=== PATIENT | male | born 1935 | race Caucasian/White ===

== ENCOUNTER 2016-08-22 16:08 | Inpatient (IN) | payer MEDICARE, BC ==
--- NOTE | 2016-08-22 16:56 | ER Document Report ---
ED Medical Screen (RME) - General Chief Complaint: Weakness Stated Complaint: WEAKNESS Notes: The patient is an 81-year-old male, past medical history CAD s/p CABG, hypertension, prostate cancer with indwelling lynch, presents with 2 days of generalized weakness and fatigue. According to his [id number], the patient is looking paler. He takes iron pills, so his stool is always dark, but no bright red blood per rectum. His Lynch was changed 2 weeks ago and he was placed on Bactrim for 10 days for a UTI. Patient denies any complaints at this time, other than a sore tongue. Denies chest pain, shortness of breath, nausea, vomiting, fevers, flank pain, headache, numbness, tingling or blurry vision. I have greeted and performed a rapid initial assessment of this patient. A comprehensive ED assessment and evaluation of the patient, analysis of test results and completion of the medical decision making process will be conducted by additional ED providers. TRAVEL OUTSIDE OF THE [place] IN LAST 30 DAYS: No - Related Data Allergies/Adverse Reactions: No Known Allergies Allergy (Verified 08/22/16 16:34) Past Medical History - Social History Chew tobacco use (# tins/day): No Frequency of alcohol use: None Drug Abuse: None - Past Medical History Cardiac Medical History: Reports: Hx Congestive Heart Failure, Hx Coronary Artery Disease, Hx Hypercholesterolemia, Hx Hypertension Denies: Hx Heart Attack, Hx Heart Murmur Pulmonary Medical History: Reports: Hx Pneumonia Denies: Hx Asthma, Hx Tuberculosis Neurological Medical History: Reports: Hx Cerebrovascular Accident - 2000. Denies: Hx Seizures Renal/ Medical History: Reports: Hx Benign Prostatic Hyperplasia. Denies: Hx Peritoneal Dialysis Malignancy Medical History: Reports Hx Prostate Cancer GI Medical History: Reports: Hx Gastroesophageal Reflux Disease. Denies: Hx Hepatitis, Hx Hiatal Hernia Musculoskeltal Medical History: Reports Hx Arthritis Infectious Medical History: Denies: Hx Hepatitis Past Surgical History: Reports: Hx Appendectomy, Hx Coronary Artery Bypass Graft , Hx Open Heart Surgery - 1999. Denies: Hx Pacemaker - Immunizations Immunizations up to date: Yes Hx Diphtheria, Pertussis, Tetanus Vaccination: Yes Physical Exam - Vital signs Vitals: Temp Pulse Resp BP Pulse Ox 97.5 F 63 20 106/50 L 95 08/22/16 16:11 08/22/16 16:11 08/22/16 16:11 08/22/16 16:11 08/22/16 16:11 Course - Vital Signs Vital signs: Temp Pulse Resp BP Pulse Ox 97.5 F 63 20 106/50 L 95 08/22/16 16:11 08/22/16 16:11 08/22/16 16:11 08/22/16 16:11 08/22/16 16:11
[2016-08-22 18:59] LABS: ALANINE AMINOTRANSFERASE 36 U/L (21-72); ALBUMIN 3.3 g/dL (3.5-5.0); ALKALINE PHOSPHATASE 76 U/L (38-126); ANION GAP 11 (5-19); ASPARTATE AMINO TRANSFERASE 31 U/L (17-59); BILIRUBIN,DIRECT 0.4 mg/dL (0.0-0.4); BILIRUBIN,TOTAL 0.5 mg/dL (0.2-1.3); BLOOD UREA NITROGEN 88 mg/dL (7-20); CALCIUM 9.1 mg/dL (8.4-10.2); CARBON DIOXIDE 20 mmol/L (22-30); CHLORIDE 105 mmol/L (98-107); CREATINE KINASE 87 U/L (55-170); CREATININE RESULT 4.04 mg/dL (0.52-1.25); GLUCOSE 110 mg/dL (75-110); POTASSIUM 5.9 mmol/L (3.6-5.0); SODIUM 136.4 mmol/L (137-145)
[2016-08-22 19:04] LABS: HGB HCT DIFFERENCE -0.3; MEAN CORPUSCULAR HEMOGLOBIN 28.2 pg (27.0-33.4); MEAN CORPUSCULAR HGB CONC 32.6 g/dL (32.0-36.0); MEAN CORPUSCULAR VOLUME 87 fl (80-97); RED BLOOD COUNT 2.08 10^6/uL (4.35-5.55); RED CELL DISTRIBUTION WIDTH 15.1 % (11.5-14.0); WHITE BLOOD COUNT 22.9 10^3/uL (4.0-10.5)
[2016-08-22 19:15] LABS: HEMOGLOBIN 5.9 g/dL (13.5-17.0); TROPONIN I < 0.012 ng/mL
[2016-08-22 19:24] LABS: BASOPHILS % (MANUAL) 0 % (0-2); EOSINOPHILS % (MANUAL) 0 % (0-6); LYMPHOCYTES % (MANUAL) 8 % (13-45); TOTAL CELLS COUNTED 100
[2016-08-22 19:25] LABS: ANISOCYTOSIS SLIGHT; POLYCHROMASIA SLIGHT; TOXIC GRANULATION 1+
[2016-08-22 19:26] LABS: HYPOCHROMASIA SLIGHT; PLATELET CLUMPS PRESENT
[2016-08-22] MEDS ORDERED: NORMAL SALINE 500 ML IV ONE (19:28)
[2016-08-22 19:44] LABS: PROTHROMBIN TIME 13.7 SEC (11.4-15.4)
[2016-08-22 19:45] LABS: PARTIAL THROMBOPLASTIN TIME 29.6 SEC (23.5-35.8)
--- NOTE | 2016-08-22 19:50 | EKG REPORT ---
SEVERITY:- ABNORMAL ECG - SINUS RHYTHM IVCD. FIRST DEG AVB NONSPECIFIC ST-T CHANGES- LATERAL LEADS : Confirmed by: Todd Cuevas MD 22-Aug-2016 19:49:37
[2016-08-22] MEDS ORDERED: CEFEPIME 1 GM/D5W RTU 50 ML IV ONE (20:02)
[2016-08-22 20:04] LABS: APPEARANCE,URINE CLOUDY; BILIRUBIN,URINE NEGATIVE (NEGATIVE); GLUCOSE, URINE NEGATIVE (NEGATIVE); KETONES,URINE NEGATIVE (NEGATIVE); LEUKOCYTE ESTERASE,URINE LARGE (NEGATIVE); NITRITE,URINE POSITIVE (NEGATIVE); PROTEIN,URINE 100 mg/dL (NEGATIVE); URINE SPECIFIC GRAVITY 1.011; UROBILINOGEN,URINE NEGATIVE mg/dL (<2.0)
[2016-08-22] MEDS ORDERED: FUROSEMIDE INJ/PF 40 MG/4 ML SDV IV PRN (20:41)
[2016-08-22] MEDS ORDERED: NORMAL SALINE 250 ML IV PRN ×2 (20:41)
[2016-08-22] MEDS ORDERED: ONDANSETRON HCL INJ/PF 4 MG/2 ML SDV IV PRN (21:52)
[2016-08-22] MEDS ORDERED: MAGNESIUM HYDROXIDE SUSP 30 ML UDCUP PO PRN (21:52)
[2016-08-22] MEDS ORDERED: ACETAMINOPHEN 325 MG TABLET PO PRN (21:52)
[2016-08-22] MEDS ORDERED: MAG HYDROX/AL HYDROX/SIMETH SUSP 30 ML UDCUP PO PRN (21:52)
--- NOTE | 2016-08-22 22:33 | ER Document Report ---
ED General - General Chief Complaint: Weakness Stated Complaint: WEAKNESS TRAVEL OUTSIDE OF THE [place] IN LAST 30 DAYS: No - HPI Patient complains to provider of: generalized weakness Notes: Patient coming in for generalized weakness. Patient has a history of prostate cancer no current radiation and chemotherapy according to family at bedside. Patient has a chronic indwelling Ernst catheter with that was recently exchanged proximal a 2 weeks ago after a urinary tract infection was diagnosed. Patient was placed on Bactrim for 10 days and has recently stopped the Bactrim 3 days prior to arrival. Patient does have diarrhea at the time no nausea no vomiting Patient does have significant history of CHF coronary artery disease hypertension. According to the family member at bedside patient is a DO NOT RESUSCITATE and wished to continue with DO NOT RESUSCITATE status. Patient is alert and awake upon speaking to the patient he has no complaints. Denies fevers chills nausea vomiting no abdominal pain no chest pain - Related Data Allergies/Adverse Reactions: No Known Allergies Allergy (Verified 08/22/16 16:52) Past Medical History - Social History Smoking Status: Unknown if Ever Smoked Chew tobacco use (# tins/day): No Frequency of alcohol use: None Drug Abuse: None Family History: Arthritis, CAD, CVA, DM, Hyperlipidemia, Hypertension, Malignancy - Past Medical History Cardiac Medical History: Reports: Hx Congestive Heart Failure, Hx Coronary Artery Disease, Hx Hypercholesterolemia, Hx Hypertension Denies: Hx Heart Attack, Hx Heart Murmur Pulmonary Medical History: Reports: Hx Pneumonia Denies: Hx Asthma, Hx Tuberculosis Neurological Medical History: Reports: Hx Cerebrovascular Accident - 2000. Denies: Hx Seizures Renal/ Medical History: Reports: Hx Benign Prostatic Hyperplasia. Denies: Hx Peritoneal Dialysis Malignancy Medical History: Reports Hx Prostate Cancer GI Medical History: Reports: Hx Gastroesophageal Reflux Disease. Denies: Hx Hepatitis, Hx Hiatal Hernia Musculoskeltal Medical History: Reports Hx Arthritis Infectious Medical History: Denies: Hx Hepatitis Past Surgical History: Reports: Hx Appendectomy, Hx Coronary Artery Bypass Graft , Hx Open Heart Surgery - 1999. Denies: Hx Pacemaker - Immunizations Immunizations up to date: Yes Hx Diphtheria, Pertussis, Tetanus Vaccination: Yes Hx Pneumococcal Vaccination: 02/10/12 Review of Systems - Review of Systems Constitutional: Weakness EENT: No symptoms reported Cardiovascular: No symptoms reported Respiratory: No symptoms reported Gastrointestinal: Diarrhea Genitourinary: No symptoms reported Male Genitourinary: No symptoms reported Musculoskeletal: No symptoms reported Skin: No symptoms reported Hematologic/Lymphatic: No symptoms reported Neurological/Psychological: No symptoms reported -: Yes All other systems reviewed and negative Physical Exam - Vital signs Vitals: Temp Pulse Resp BP Pulse Ox 97.5 F 63 20 106/50 L 95 08/22/16 16:11 08/22/16 16:11 08/22/16 16:11 08/22/16 16:11 08/22/16 16:11 Interpretation: Normal - General General appearance: Appears well, Alert - HEENT Head: Normocephalic, Atraumatic Eyes: Normal Pupils: PERRL - Respiratory Respiratory status: No respiratory distress Chest status: Nontender Breath sounds: Other - Crackles lower lobe Chest palpation: Normal - Cardiovascular Rhythm: Regular Heart sounds: Normal auscultation Murmur: No - Abdominal Inspection: Normal Distension: No distension, Other - Large hernia and suprapubic right inguinal region that is nontender Bowel sounds: Normal Tenderness: Nontender Organomegaly: No organomegaly - Rectal Stool: Heme positive, Black - Black stool chronic for patient Hemorrhoids: None - Genitourinary Inspection: Normal - Indwelling Ernst catheter - Back Back: Normal, Nontender - Extremities General upper extremity: Normal inspection, Nontender, Normal color, Normal ROM , Normal temperature General lower extremity: Normal inspection, Nontender, Normal color, Normal ROM , Normal temperature, Normal weight bearing. No: Fay's sign - Neurological Neuro grossly intact: Yes Cognition: Normal Orientation: AAOx4 Guillermo Coma Scale Eye Opening: Spontaneous Guillermo Coma Scale Verbal: Oriented Hawkins Coma Scale Motor: Obeys Commands Hawkins Coma Scale Total: 15 Speech: Normal Motor strength normal: LUE, RUE, LLE, RLE Sensory: Normal - Psychological Associated symptoms: Normal affect, Normal mood - Skin Skin Temperature: Warm Skin Moisture: Dry Skin Color: Normal Course - Re-evaluation Re-evalutation: 08/22/16 22:29 Patient's lab work shows leukocytosis possibly from continuing infection in the urine. Patient was started on cefepime. Patient does have a hemoglobin of 5.9 with hematocrit of 18. Platelets at the be normal. Patient has no history GI bleeding in the past according to family members no recent blood transfusions. Patient's rectal exam that showed black stool however patient states a family confirms this is chronic for the patient. This came back positive patient is on iron tablets. Laboratory does shows hyperkalemia with her acute renal failure. Etiology thought to be from possible wart Bactrim use or dehydration. A CAT scan was performed showing a Ernst catheter was not in the correct position causing some obstruction therefore for catheter was manipulated by nursing staff with good urinary return. Chest x-ray shows findings of airspace disease in the right lower lobe lung patient has no fever no cough more likely this is possible effusion - Vital Signs Vital signs: Temp Pulse Resp BP Pulse Ox 97.5 F 62 18 114/54 L 98 08/22/16 16:11 08/22/16 19:03 08/22/16 20:24 08/22/16 20:24 08/22/16 20:24 - Laboratory Result Diagrams: 08/22/16 18:22 08/22/16 18:22 Laboratory results interpreted by me: 08/22/16 08/22/16 08/22/16 18:22 18:22 18:22 WBC 22.9 H RBC 2.08 L Hgb 5.9 L Hct 18.0 L RDW 15.1 H Seg Neuts % (Manual) 86 H Lymphocytes % (Manual) 8 L Abs Neuts (Manual) 19.7 H Retic Count (auto) Absolute Retic Sodium 136.4 L Potassium 5.9 H Carbon Dioxide 20 L BUN 88 H Creatinine 4.04 H Est GFR ( Amer) 17 L Est GFR (Non-Af Amer) 14 L Iron NT-Pro-B Natriuret Pep 8120 H Total Protein 6.0 L Albumin 3.3 L Lipase 509.0 H Urine Protein Urine Blood Urine Nitrite Ur Leukocyte Esterase Crossmatch 08/22/16 08/22/16 08/22/16 18:22 18:22 19:11 WBC RBC Hgb Hct RDW Seg Neuts % (Manual) Lymphocytes % (Manual) Abs Neuts (Manual) Retic Count (auto) 4.92 H Absolute Retic 0.218 H Sodium Potassium Carbon Dioxide BUN Creatinine Est GFR ( Amer) Est GFR (Non-Af Amer) Iron 16.3 L NT-Pro-B Natriuret Pep Total Protein Albumin Lipase Urine Protein 100 H Urine Blood SMALL H Urine Nitrite POSITIVE H Ur Leukocyte Esterase LARGE H Crossmatch 08/22/16 19:58 WBC RBC Hgb Hct RDW Seg Neuts % (Manual) Lymphocytes % (Manual) Abs Neuts (Manual) Retic Count (auto) Absolute Retic Sodium Potassium Carbon Dioxide BUN Creatinine Est GFR ( Amer) Est GFR (Non-Af Amer) Iron NT-Pro-B Natriuret Pep Total Protein Albumin Lipase Urine Protein Urine Blood Urine Nitrite Ur Leukocyte Esterase Crossmatch See Detail Discharge - Discharge Clinical Impression: Malignant neoplasm of prostate, Transfusion-dependent anemia Acute renal failure Qualifiers: Acute renal failure type: unspecified Qualified Code(s): N17.9 - Acute kidney failure, unspecified Malfunction of Ernst catheter Qualifiers: Encounter type: sequela Qualified Code(s): T83.011S - Breakdown (mechanical) of indwelling urethral catheter, sequela UTI (urinary tract infection) due to urinary indwelling Ernst catheter Qualifiers: Indwelling urinary catheter type: unspecified Encounter type: initial encounter Qualified Code(s): T83.511A - Infection and inflammatory reaction due to indwelling urethral catheter, initial encounter; N39.0 - Urinary tract infection, site not specified Condition: Good Disposition: ADMITTED INPATIENT Admitting Provider: Hospitalist - [facility] Admitted: [facility]
[2016-08-23] MEDS: NORMAL SALINE 1000 ML 1,000 ML IV PRN ×2 (00:13→06:36)
[2016-08-23] MEDS ORDERED: CEFTRIAXONE SODIUM 1,500 MG in DEXTROSE 5%-WATER 100 ML IV ONE (01:15)
[2016-08-23] MEDS ORDERED: LACTULOSE SYRUP 20 GM/30 ML UDCUP PO ONE (04:21)
[2016-08-23] MEDS ORDERED: SODIUM POLYSTYRENE SULFONATE 15 GM/60 ML PO ONE ×2 (04:22→18:15)
--- NOTE | 2016-08-23 04:28 | PDOC H&P ---
History of Present Illness Admission Date/PCP: 08/22/16 21:52 ANTONY SEGOVIA MD Patient complains of: Generalized weakness History of Present Illness: BLANCA ZIMMER is a 81 year old male with a past medical history of congestive heart failure, remote CVA with dysarthria, coronary artery disease, prostate cancer and chronic indwelling Ernst catheter and recent urinary tract infection who had his Ernst exchanged approximately 2 weeks ago and placed on Bactrim 10 days living with generalized weakness and diarrhea without nausea vomiting or chest pain. In the emergency room he's found to have hyperkalemia with peaked T waves, acute renal failure, leukocytosis and urinalysis suggestive of pyelonephritis a CT scan is obtained showing dilated urinary bladder and bilateral hydronephrosis. Ernst catheter is replaced resulting in 1500 mL of urine he started on empiric antibiotic's referred to the hospitalist for admission Past Medical History Cardiac Medical History: Reports: Congestive Heart Failure, Coronary Artery Disease, Hyperlipidema, Hypertension Denies: Myocardial Infarction, Heart Murmur Pulmonary Medical History: Reports: Pneumonia Denies: Asthma, Tuberculosis Neurological Medical History: Denies: Seizures Malignancy Medical History: Denies: Breast Cancer, Cervical Cancer, Ovarian Cancer GI Medical History: Reports: Gastroesophageal Reflux Disease Denies: Hepatitis, Hiatal Hernia Musculoskeltal Medical History: Reports: Arthritis Hematology: Reports: Anemia Denies: Sickle Cell Disease Past Surgical History Past Surgical History: Reports: Appendectomy, Coronary Artery Bypass Graft Denies: Pacemaker Social History Information Source: Parent, Relative Lives with: Family Smoking Status: Unknown if Ever Smoked Hx Recreational Drug Use: No Drugs: None Hx Prescription Drug Abuse: No - Advance Directive Resuscitation Status: Do Not Resuscitate Family History Family History: Arthritis, CAD, CVA, DM, Hyperlipidemia, Hypertension, Malignancy Parental Family History Reviewed: Yes Children Family History Reviewed: Yes Sibling(s) Family History Reviewed.: Yes Medication/Allergy Home Medications: Amlodipine Besylate [Norvasc 10 mg Tablet] 10 mg PO DAILY 03/10/12 Albuterol Sulfate [Ventolin HFA MDI 18 GM] 1 - 2 puff IH Q4H PRN 07/14/15 Atenolol [Tenormin] 50 mg PO DAILY 07/14/15 Atorvastatin Calcium 10 mg PO DAILY 07/14/15 Bicalutamide 50 mg PO DAILY 07/14/15 Clopidogrel Bisulfate [Clopidogrel] 75 mg PO DAILY 07/14/15 Isosorbide Mononitrate [Isosorbide Mononitrate ER] 30 mg PO DAILY 07/14/15 Lisinopril 40 mg PO DAILY 07/14/15 Fluticasone/Salmeterol [Advair 100-50 Diskus 28 Dose] 2 puff IH BID 08/22/16 Allergies/Adverse Reactions: No Known Allergies Allergy (Verified 08/22/16 16:52) Review of Systems Constitutional: PRESENT: anorexia, fatigue, fever(s), weakness Eyes: ABSENT: visual disturbances Ears: ABSENT: hearing changes Cardiovascular: ABSENT: chest pain, dyspnea on exertion, edema, orthropnea, palpitations Respiratory: ABSENT: cough, hemoptysis Gastrointestinal: PRESENT: abdominal pain, diarrhea Genitourinary: ABSENT: dysuria, hematuria Musculoskeletal: ABSENT: joint swelling Integumentary: ABSENT: rash, wounds Neurological: ABSENT: abnormal gait, abnormal speech, confusion, dizziness, focal weakness, syncope Psychiatric: ABSENT: anxiety, depression, homidical ideation, suicidal ideation Endocrine: ABSENT: cold intolerance, heat intolerance, polydipsia, polyuria Hematologic/Lymphatic: ABSENT: easy bleeding, easy bruising Physical Exam Vital Signs: Temp Pulse Resp BP Pulse Ox 98.2 F 73 16 106/56 L 97 08/23/16 04:08 08/23/16 04:08 08/23/16 04:08 08/23/16 04:08 08/23/16 04:08 Intake & Output 08/21/16 08/22/16 08/23/16 11:59 11:59 11:59 Intake Total 300 Output Total 1200 Balance -900 General appearance: PRESENT: cooperative, mild distress Head exam: PRESENT: atraumatic, normocephalic Eye exam: PRESENT: conjunctiva pink, EOMI, PERRLA. ABSENT: scleral icterus Ear exam: PRESENT: normal external ear exam Mouth exam: PRESENT: dry mucosa Neck exam: ABSENT: carotid bruit, JVD, lymphadenopathy, thyromegaly Respiratory exam: PRESENT: clear to auscultation lauren. ABSENT: rales, rhonchi, wheezes Cardiovascular exam: PRESENT: RRR. ABSENT: diastolic murmur, rubs, systolic murmur Pulses: PRESENT: normal dorsalis pedis pul Vascular exam: PRESENT: normal capillary refill GI/Abdominal exam: PRESENT: hernia, hyperactive bowel sounds, normal bowel sounds, soft, tenderness. ABSENT: distended, guarding, mass, organolmegaly, rebound Rectal exam: PRESENT: deferred Extremities exam: PRESENT: full ROM. ABSENT: calf tenderness, clubbing, pedal edema Neurological exam: PRESENT: alert, awake, oriented to person, oriented to place , oriented to time, oriented to situation, CN II-XII grossly intact. ABSENT: motor sensory deficit Results Impressions: Chest X-Ray 08/22/16 16:43 IMPRESSION: RIGHT LOWER LOBE AIRSPACE DISEASE WITH POSSIBLE SMALL RIGHT PLEURAL EFFUSION MAY REPRESENT ATELECTASIS OR PNEUMONIA. CORRELATE WITH RESPIRATORY SYMPTOMS. Limited or Localized CT 08/22/16 20:46 IMPRESSION: Distended bladder with mild hydronephrosis and hydroureter. Ernst catheter balloon and tip are in the prostate gland. Larger right inguinal hernia which contains bowel in the appendix. No obstruction. Small bilateral pleural effusions. Assessment & Plan - Diagnosis (1) UTI (urinary tract infection) due to urinary indwelling Ernst catheter Qualifiers: Indwelling urinary catheter type: indwelling urethral catheter Encounter type: initial encounter Qualified Code(s): T83.511A - Infection and inflammatory reaction due to indwelling urethral catheter, initial encounter; N39.0 - Urinary tract infection, site not specified Is this a current diagnosis for this admission?: YesPlan: Catheter causing obstruction he has replacement of the catheter with flow and BladderScan negative for residual urine. He is Started on empiric antibiotics with an IV fluid challenge and symptomatically management. Follow-up CBC and culture (2) Hyperkalemia Is this a current diagnosis for this admission?: YesPlan: Secondary to Bactrim and acute renal failure he'll receive an IV fluid challenge , Kayexalate and lactulose with reevaluation (3) Hydronephrosis Is this a current diagnosis for this admission?: YesPlan: Secondary to obstructed Ernst catheter resulting after replacement (4) Acute renal failure Qualifiers: Acute renal failure type: unspecified Qualified Code(s): N17.9 - Acute kidney failure, unspecified Is this a current diagnosis for this admission?: YesPlan: Multifactorial secondary to UTI, outlet obstruction and Bactrim. I'll avoid nephrotoxic meds and doses initiate an IV fluid challenge and reevaluate chemistry consider nephrology consultation - Time Time Spent: 50 to 70 Minutes - Inpatient Certification Medical Necessity: Need Close Monitoring Due to Risk of Patient Decompensation
[2016-08-23] MEDS: HEPARIN SOD (PORCINE) 5,000 UNIT/ML 1 ML SYRINGE SUBCUT SCH ×3 (07:53→21:45)
[2016-08-23 08:28] LABS: ANION GAP 8 (5-19); BLOOD UREA NITROGEN 70 mg/dL (7-20); CALCIUM 8.4 mg/dL (8.4-10.2); CARBON DIOXIDE 19 mmol/L (22-30); CHLORIDE 112 mmol/L (98-107); CREATININE RESULT 3.07 mg/dL (0.52-1.25); GLUCOSE 89 mg/dL (75-110); POTASSIUM 5.6 mmol/L (3.6-5.0); SODIUM 139.4 mmol/L (137-145)
[2016-08-23 11:09] LABS: ABSOLUTE BASOPHILS # (AUTO) 0.1 10^3/uL (0.0-0.2); ABSOLUTE LYMPHOCYTES (AUTO) 1.5 10^3/uL (0.5-4.7); ABSOLUTE MONOCYTES (AUTO) 1.5 10^3/uL (0.1-1.4); BASOPHILS % (AUTO) 0.8 % (0-2); HEMATOCRIT 22.1 % (37.9-51.0); HGB HCT DIFFERENCE -0.2; LYMPHOCYTES % (AUTO) 10.4 % (13-45); MEAN CORPUSCULAR HEMOGLOBIN 28.7 pg (27.0-33.4); MEAN CORPUSCULAR HGB CONC 33.1 g/dL (32.0-36.0); MEAN CORPUSCULAR VOLUME 87 fl (80-97); MONOCYTES % (AUTO) 10.7 % (3-13); RED BLOOD COUNT 2.55 10^6/uL (4.35-5.55); RED CELL DISTRIBUTION WIDTH 14.8 % (11.5-14.0); SEGMENTED NEUTROPHILS % (AUTO) 78.1 % (42-78)
[2016-08-23 11:11] LABS: HEMOGLOBIN 7.3 g/dL (13.5-17.0)
[2016-08-23] MEDS: DOCUSATE SODIUM 100 MG CAPSULE PO SCH ×2 (11:17→18:10)
[2016-08-23] MEDS ORDERED: NORMAL SALINE 250 ML IV PRN ×2 (12:32)
--- NOTE | 2016-08-23 12:38 | PDOC PROGRESS REPORT ---
Subjective Progress Note for:: 08/23/16 Subjective:: Patient reports he feels much better after having 2 units of packed red blood cells. Physical Exam Vital Signs: Temp Pulse Resp BP Pulse Ox 98.3 F 65 17 117/56 L 98 08/23/16 08:00 08/23/16 08:00 08/23/16 08:00 08/23/16 08:00 08/23/16 08:00 Intake & Output 08/22/16 08/23/16 08/24/16 06:59 06:59 06:59 Intake Total 1400 250 Output Total 1925 Balance -525 250 Weight 97.1 kg 97.1 kg General appearance: PRESENT: no acute distress Eye exam: PRESENT: conjunctiva pink. ABSENT: scleral icterus Mouth exam: PRESENT: moist, tongue midline Neck exam: ABSENT: JVD Respiratory exam: PRESENT: clear to auscultation lauren. ABSENT: rales, rhonchi, wheezes Cardiovascular exam: PRESENT: RRR. ABSENT: diastolic murmur, rubs, systolic murmur GI/Abdominal exam: PRESENT: normal bowel sounds, soft. ABSENT: distended, guarding, mass, organolmegaly, rebound, tenderness Extremities exam: ABSENT: calf tenderness, clubbing, pedal edema Neurological exam: PRESENT: alert, awake, oriented to person, oriented to place , CN II-XII grossly intact, motor sensory deficit. ABSENT: oriented to time Psychiatric exam: PRESENT: appropriate affect Skin exam: PRESENT: dry, intact, warm. ABSENT: cyanosis, rash Results Laboratory Results: 08/23/16 10:35 08/23/16 07:47 08/23/16 08/23/16 07:47 10:35 WBC 14.0 H RBC 2.55 L Hgb 7.3 L Hct 22.1 L MCV 87 MCH 28.7 MCHC 33.1 RDW 14.8 H Plt Count 248 Seg Neutrophils % 78.1 H Lymphocytes % 10.4 L Monocytes % 10.7 Eosinophils % 0.0 Basophils % 0.8 Absolute Neutrophils 11.0 H Absolute Lymphocytes 1.5 Absolute Monocytes 1.5 H Absolute Eosinophils 0.0 Absolute Basophils 0.1 Sodium 139.4 Potassium 5.6 H Chloride 112 H Carbon Dioxide 19 L Anion Gap 8 BUN 70 H Creatinine 3.07 H Est GFR ( Amer) 24 L Est GFR (Non-Af Amer) 20 L Glucose 89 Calcium 8.4 Impressions: Chest X-Ray 08/22/16 16:43 IMPRESSION: RIGHT LOWER LOBE AIRSPACE DISEASE WITH POSSIBLE SMALL RIGHT PLEURAL EFFUSION MAY REPRESENT ATELECTASIS OR PNEUMONIA. CORRELATE WITH RESPIRATORY SYMPTOMS. Limited or Localized CT 08/22/16 20:46 IMPRESSION: Distended bladder with mild hydronephrosis and hydroureter. Ernst catheter balloon and tip are in the prostate gland. Larger right inguinal hernia which contains bowel in the appendix. No obstruction. Small bilateral pleural effusions. Assessment & Plan - Diagnosis (1) Hyperkalemia Is this a current diagnosis for this admission?: YesPlan: Most likely secondary to his acute renal failure. We'll continue with fluid resuscitation and to monitor. He has Been Ordered but Has Had Problems with Loose Bowel Movements. (2) Acute renal failure Qualifiers: Acute renal failure type: unspecified Qualified Code(s): N17.9 - Acute kidney failure, unspecified Is this a current diagnosis for this admission?: YesPlan: Patient was very anemic when he presented which contributed to the acute renal failure along with the Ernst catheter. We'll continue to monitor as he is transfused and given fluids. (3) Anemia requiring transfusions Is this a current diagnosis for this admission?: YesPlan: Patient's hemoglobin has improved from 5-7 and we will transfuse 2 more units packed red blood cells. (4) Hydronephrosis Is this a current diagnosis for this admission?: YesPlan: Most likely was secondary to the Ernst catheter not draining properly. It has been replaced and hopefully this will resolve. (5) Prostate cancer Is this a current diagnosis for this admission?: Yes (6) UTI (urinary tract infection) due to urinary indwelling Ernst catheter Qualifiers: Indwelling urinary catheter type: indwelling urethral catheter Encounter type: initial encounter Qualified Code(s): T83.511A - Infection and inflammatory reaction due to indwelling urethral catheter, initial encounter; N39.0 - Urinary tract infection, site not specified Is this a current diagnosis for this admission?: YesPlan: Patient has been started on Rocephin. - Time Time Spent with patient: 25-34 minutes - Inpatient Certification Medical Necessity: Need Close Monitoring Due to Risk of Patient Decompensation, Need for IV Antibiotics
[2016-08-23] MEDS: IPRATROPIUM/ALBUTEROL 0.5-2.5 MG/3 ML AMPUL NEB PRN (13:34)
[2016-08-23] MEDS ORDERED: FLUTICASONE/SALMETEROL DISKUS 100-50 MCG/DOSE IH ONE (15:00)
[2016-08-23] MEDS: NYSTATIN/DEXAMETH/DIPHEN SUSP 120 ML PO SCH ×2 (18:09→21:45)
[2016-08-23] MEDS: CEFTRIAXONE SODIUM 1,500 MG in DEXTROSE 5%-WATER 100 ML IV SCH (18:14)
[2016-08-24 01:11] LABS: ABSOLUTE BASOPHILS # (AUTO) 0.1 10^3/uL (0.0-0.2); ABSOLUTE LYMPHOCYTES (AUTO) 1.8 10^3/uL (0.5-4.7); ABSOLUTE MONOCYTES (AUTO) 1.8 10^3/uL (0.1-1.4); ABSOLUTE NEUT (AUTO) 10.6 10^3/uL (1.7-8.2); BASOPHILS % (AUTO) 0.8 % (0-2); HEMATOCRIT 28.2 % (37.9-51.0); HGB HCT DIFFERENCE 0.3; LYMPHOCYTES % (AUTO) 12.9 % (13-45); MEAN CORPUSCULAR HEMOGLOBIN 29.2 pg (27.0-33.4); MEAN CORPUSCULAR HGB CONC 33.5 g/dL (32.0-36.0); MEAN CORPUSCULAR VOLUME 87 fl (80-97); MONOCYTES % (AUTO) 12.6 % (3-13); RED BLOOD COUNT 3.25 10^6/uL (4.35-5.55); RED CELL DISTRIBUTION WIDTH 14.6 % (11.5-14.0); SEGMENTED NEUTROPHILS % (AUTO) 73.7 % (42-78); WHITE BLOOD COUNT 14.3 10^3/uL (4.0-10.5)
[2016-08-24 01:18] LABS: HEMOGLOBIN 9.5 g/dL (13.5-17.0)
[2016-08-24] MEDS: FLUTICASONE/SALMETEROL DISKUS 100-50 MCG/DOSE IH SCH ×2 (06:03→17:06)
[2016-08-24] MEDS: HEPARIN SOD (PORCINE) 5,000 UNIT/ML 1 ML SYRINGE SUBCUT SCH ×3 (06:03→21:06)
[2016-08-24 07:37] LABS: ABSOLUTE BASOPHILS # (AUTO) 0.1 10^3/uL (0.0-0.2); ABSOLUTE MONOCYTES (AUTO) 1.7 10^3/uL (0.1-1.4); ABSOLUTE NEUT (AUTO) 10.6 10^3/uL (1.7-8.2); BASOPHILS % (AUTO) 0.6 % (0-2); HEMATOCRIT 29.2 % (37.9-51.0); HEMOGLOBIN 9.9 g/dL (13.5-17.0); HGB HCT DIFFERENCE 0.5; MEAN CORPUSCULAR HEMOGLOBIN 29.6 pg (27.0-33.4); MEAN CORPUSCULAR VOLUME 87 fl (80-97); MONOCYTES % (AUTO) 11.7 % (3-13); RED BLOOD COUNT 3.35 10^6/uL (4.35-5.55); RED CELL DISTRIBUTION WIDTH 14.9 % (11.5-14.0); SEGMENTED NEUTROPHILS % (AUTO) 73.7 % (42-78); WHITE BLOOD COUNT 14.4 10^3/uL (4.0-10.5)
[2016-08-24 07:54] LABS: ANION GAP 12 (5-19); CALCIUM 8.8 mg/dL (8.4-10.2); CARBON DIOXIDE 18 mmol/L (22-30); CHLORIDE 113 mmol/L (98-107); CREATININE RESULT 2.11 mg/dL (0.52-1.25); GLUCOSE 89 mg/dL (75-110); POTASSIUM 5.2 mmol/L (3.6-5.0); SODIUM 143.1 mmol/L (137-145)
[2016-08-24 08:29] LABS: BLOOD UREA NITROGEN 48 mg/dL (7-20)
[2016-08-24] MEDS: IPRATROPIUM/ALBUTEROL 0.5-2.5 MG/3 ML AMPUL NEB PRN (08:36)
[2016-08-24] MEDS: DOCUSATE SODIUM 100 MG CAPSULE PO SCH ×2 (09:40→17:06)
[2016-08-24] MEDS: NYSTATIN/DEXAMETH/DIPHEN SUSP 120 ML PO SCH ×4 (09:41→21:06)
--- NOTE | 2016-08-24 10:35 | PDOC PROGRESS REPORT ---
Subjective Progress Note for:: 08/24/16 Subjective:: Denies any complaints. Physical Exam Vital Signs: Temp Pulse Resp BP Pulse Ox 98.2 F 68 18 121/72 94 08/24/16 07:54 08/24/16 08:57 08/24/16 08:41 08/24/16 07:54 08/24/16 08:41 Intake & Output 08/23/16 08/24/16 08/25/16 06:59 06:59 06:59 Intake Total 1400 3542 Output Total 1925 2100 Balance -525 1442 Weight 97.1 kg 100.3 kg General appearance: PRESENT: no acute distress Eye exam: PRESENT: conjunctiva pink. ABSENT: scleral icterus Mouth exam: PRESENT: moist, tongue midline Neck exam: ABSENT: JVD Respiratory exam: PRESENT: clear to auscultation lauren. ABSENT: rales, rhonchi, wheezes Cardiovascular exam: PRESENT: RRR. ABSENT: diastolic murmur, rubs, systolic murmur GI/Abdominal exam: PRESENT: normal bowel sounds, soft. ABSENT: distended, guarding, mass, organolmegaly, rebound, tenderness Extremities exam: ABSENT: calf tenderness, clubbing, pedal edema Neurological exam: PRESENT: alert, awake, oriented to person, oriented to place , CN II-XII grossly intact. ABSENT: oriented to time, oriented to situation, motor sensory deficit Psychiatric exam: PRESENT: appropriate affect Skin exam: PRESENT: dry, intact, warm. ABSENT: cyanosis, rash Results Laboratory Results: 08/24/16 07:19 08/24/16 07:19 08/23/16 08/24/16 08/24/16 10:35 01:00 07:19 WBC 14.0 H 14.3 H 14.4 H RBC 2.55 L 3.25 L 3.35 L Hgb 7.3 L 9.5 L D 9.9 L Hct 22.1 L 28.2 L 29.2 L MCV 87 87 87 MCH 28.7 29.2 29.6 MCHC 33.1 33.5 34.0 RDW 14.8 H 14.6 H 14.9 H Plt Count 248 234 236 Seg Neutrophils % 78.1 H 73.7 73.7 Lymphocytes % 10.4 L 12.9 L 14.0 Monocytes % 10.7 12.6 11.7 Eosinophils % 0.0 0.0 0.0 Basophils % 0.8 0.8 0.6 Absolute Neutrophils 11.0 H 10.6 H 10.6 H Absolute Lymphocytes 1.5 1.8 2.0 Absolute Monocytes 1.5 H 1.8 H 1.7 H Absolute Eosinophils 0.0 0.0 0.0 Absolute Basophils 0.1 0.1 0.1 Sodium Potassium Chloride Carbon Dioxide Anion Gap BUN Creatinine Est GFR ( Amer) Est GFR (Non-Af Amer) Glucose Calcium 08/24/16 07:19 WBC RBC Hgb Hct MCV MCH MCHC RDW Plt Count Seg Neutrophils % Lymphocytes % Monocytes % Eosinophils % Basophils % Absolute Neutrophils Absolute Lymphocytes Absolute Monocytes Absolute Eosinophils Absolute Basophils Sodium 143.1 Potassium 5.2 H Chloride 113 H Carbon Dioxide 18 L Anion Gap 12 BUN 48 H D Creatinine 2.11 H Est GFR ( Amer) 36 L Est GFR (Non-Af Amer) 30 L Glucose 89 Calcium 8.8 Impressions: Chest X-Ray 08/22/16 16:43 IMPRESSION: RIGHT LOWER LOBE AIRSPACE DISEASE WITH POSSIBLE SMALL RIGHT PLEURAL EFFUSION MAY REPRESENT ATELECTASIS OR PNEUMONIA. CORRELATE WITH RESPIRATORY SYMPTOMS. Limited or Localized CT 08/22/16 20:46 IMPRESSION: Distended bladder with mild hydronephrosis and hydroureter. Ernst catheter balloon and tip are in the prostate gland. Larger right inguinal hernia which contains bowel in the appendix. No obstruction. Small bilateral pleural effusions. Assessment & Plan - Diagnosis (1) Hyperkalemia Is this a current diagnosis for this admission?: YesPlan: Most likely secondary to his acute renal failure. We'll continue with IV fluid. (2) Acute renal failure Qualifiers: Acute renal failure type: unspecified Qualified Code(s): N17.9 - Acute kidney failure, unspecified Is this a current diagnosis for this admission?: YesPlan: Patient was very anemic when he presented which contributed to the acute renal failure along with the Ernst catheter. We'll continue to monitor as he is given fluids. (3) Anemia requiring transfusions Is this a current diagnosis for this admission?: YesPlan: Patient's hemoglobin has improved. No evidence for active bleeding at this time. (4) Hydronephrosis Is this a current diagnosis for this admission?: YesPlan: Most likely was secondary to the Ernst catheter not draining properly. It has been replaced and we'll check another renal ultrasound Friday. (5) Prostate cancer Is this a current diagnosis for this admission?: Yes (6) UTI (urinary tract infection) due to urinary indwelling Ernst catheter Qualifiers: Indwelling urinary catheter type: indwelling urethral catheter Encounter type: initial encounter Qualified Code(s): T83.511A - Infection and inflammatory reaction due to indwelling urethral catheter, initial encounter; N39.0 - Urinary tract infection, site not specified Is this a current diagnosis for this admission?: YesPlan: Patient has been started on Rocephin. - Time Time Spent with patient: 25-34 minutes - Inpatient Certification Medical Necessity: Need For IV Fluids, Need for IV Antibiotics
[2016-08-24] MEDS ORDERED: MAG HYDROX/AL HYDROX/SIMETH SUSP 30 ML UDCUP PO PRN (11:50)
--- NOTE | 2016-08-24 13:18 | CONSULTATION REPORT E ---
Consultation Report NAME: BALNCA ZIMMER : 1935 AGE: 81Y DATE: 08/24/2016 ROOM: 324 A TO: WING REYES M.D. - Urology FROM: WING KELLY M.D. Requesting Physician HISTORY: The patient is an 81-year-old gentleman who has a long urological history, who was seen locally by a urologist here. He was admitted with a GI bleed. He has had blood transfusions for that and apparently is feeling better and recovering from this. He is seen in urological consultation due to chronic issues regarding urinary retention and prostate cancer. He has a chronic indwelling Ernst catheter that is changed monthly. He apparently had it changed just a few days ago and there was some difficulty with that. He apparently went back to his urologist's office numerous times due to problems with his catheter; this is according to his family members, as the patient has a difficult time giving good history because of aphasia due to a stroke. He was seen in the emergency room with a GI bleed and abdominal pain and some cardiac arrhythmias. He had a CAT scan that showed an extremely distended bladder, mild hydronephrosis, and a Ernst catheter that was not fully inserted into the bladder. Old catheter was removed. New catheter was placed and he had 1500 mL noted to drain. He immediately felt better. The patient continues with gross hematuria, but no clots. He does not have any flank pain. No fever. He does have a positive urine culture in recent past, but this is due to his chronic indwelling catheter and bacterial colonization. No high fevers. No sign of sepsis associated with this admission. The patient had a significant stroke some years ago and he is not able to give a very accurate history, but a full history is taken from his family members. He also has a history of congestive heart failure. He has a history of a large right inguinal hernia. A CT scan also revealed this with bowel in it, no sign of strangulation, very open-mouthed hernia. PHYSICAL EXAMINATION: GENERAL: On exam, an elderly white male who is comfortable, resting quietly in bed. HEENT: Normocephalic, atraumatic. Pupils are equal, round, and respond to light. LUNGS: Chest clear to auscultation. CARDIAC: Regular rate and rhythm. ABDOMEN: Soft. Nontender. No abdominal pain, no flank pain at all. GENITOURINARY: Ernst catheter is noted to be in good position. EXTREMITIES: The lower extremity causes enough of a bulge that his penis is significantly withdrawn. No abnormalities there. The lower extremities are normal. IMPRESSION AND RECOMMENDATIONS: An 81-year-old with multiple medical problems, managed locally for prostate cancer and urinary retention. Urinary hydronephrosis likely due to the short-term obstructions from his Ernst catheter, which now should have resolved. He has blood in his urine due to chronic irritation from the Ernst catheter overlaid with a very distended bladder, all the way up to 1500 mL. This should resolve on its own. I instructed the nursing staff that it is okay to do irrigations with normal saline if he has clot that obstructs the catheter. Will need to keep his regular followup with local urology for further catheter management. Further prostate cancer care per local urologist as well. DICTATING PHYSICIAN: Wing Reyes M.D. [id number] PHY#: [id number] ID: [id number] JOB#: [id number] ACCT: [id number] cc:Wing Reyes M.D. >
[2016-08-24] MEDS: CEFTRIAXONE SODIUM 1,500 MG in DEXTROSE 5%-WATER 100 ML IV SCH (17:07)
[2016-08-25 05:03] LABS: ABSOLUTE BASOPHILS # (AUTO) 0.2 10^3/uL (0.0-0.2); ABSOLUTE LYMPHOCYTES (AUTO) 2.3 10^3/uL (0.5-4.7); ABSOLUTE MONOCYTES (AUTO) 1.9 10^3/uL (0.1-1.4); ABSOLUTE NEUT (AUTO) 10.2 10^3/uL (1.7-8.2); BASOPHILS % (AUTO) 1.2 % (0-2); HEMOGLOBIN 9.6 g/dL (13.5-17.0); HGB HCT DIFFERENCE -0.2; LYMPHOCYTES % (AUTO) 15.6 % (13-45); MEAN CORPUSCULAR HEMOGLOBIN 29.1 pg (27.0-33.4); MEAN CORPUSCULAR HGB CONC 33.1 g/dL (32.0-36.0); MEAN CORPUSCULAR VOLUME 88 fl (80-97); MONOCYTES % (AUTO) 12.9 % (3-13); RED CELL DISTRIBUTION WIDTH 15.3 % (11.5-14.0); SEGMENTED NEUTROPHILS % (AUTO) 70.3 % (42-78); WHITE BLOOD COUNT 14.5 10^3/uL (4.0-10.5)
[2016-08-25] MEDS: FLUTICASONE/SALMETEROL DISKUS 100-50 MCG/DOSE IH SCH ×2 (05:17→17:23)
[2016-08-25] MEDS: HEPARIN SOD (PORCINE) 5,000 UNIT/ML 1 ML SYRINGE SUBCUT SCH ×3 (05:17→21:17)
[2016-08-25 05:32] LABS: ANION GAP 11 (5-19); BLOOD UREA NITROGEN 31 mg/dL (7-20); CALCIUM 8.7 mg/dL (8.4-10.2); CARBON DIOXIDE 19 mmol/L (22-30); CHLORIDE 110 mmol/L (98-107); CREATININE RESULT 1.62 mg/dL (0.52-1.25); GLUCOSE 87 mg/dL (75-110); POTASSIUM 5.3 mmol/L (3.6-5.0)
[2016-08-25] MEDS: NYSTATIN/DEXAMETH/DIPHEN SUSP 120 ML PO SCH ×4 (09:18→21:17)
[2016-08-25] MEDS: DOCUSATE SODIUM 100 MG CAPSULE PO SCH ×2 (09:19→17:21)
--- NOTE | 2016-08-25 10:39 | PDOC PROGRESS REPORT ---
Subjective Progress Note for:: 08/25/16 Subjective:: Denies any complaints. Physical Exam Vital Signs: Temp Pulse Resp BP Pulse Ox 98.3 F 83 18 150/73 H 95 08/25/16 07:32 08/25/16 08:53 08/25/16 08:53 08/25/16 07:32 08/25/16 08:53 Intake & Output 08/24/16 08/25/16 08/26/16 06:59 06:59 06:59 Intake Total 3542 1850 Output Total 2100 3050 Balance 1442 -1200 Weight 100.3 kg 95.6 kg General appearance: PRESENT: no acute distress Eye exam: PRESENT: conjunctiva pink. ABSENT: scleral icterus Mouth exam: PRESENT: moist, tongue midline Neck exam: ABSENT: JVD Respiratory exam: PRESENT: clear to auscultation lauren. ABSENT: rales, rhonchi, wheezes Cardiovascular exam: PRESENT: RRR. ABSENT: diastolic murmur, rubs, systolic murmur GI/Abdominal exam: PRESENT: normal bowel sounds, soft. ABSENT: distended, guarding, mass, organolmegaly, rebound, tenderness Extremities exam: ABSENT: calf tenderness, clubbing, pedal edema Neurological exam: PRESENT: alert, awake, oriented to person, oriented to place , oriented to time, oriented to situation, CN II-XII grossly intact. ABSENT: motor sensory deficit Psychiatric exam: PRESENT: appropriate affect Skin exam: PRESENT: dry, intact, warm. ABSENT: cyanosis, rash Results Laboratory Results: 08/25/16 03:47 08/25/16 03:47 08/25/16 08/25/16 03:47 03:47 WBC 14.5 H RBC 3.30 L Hgb 9.6 L Hct 29.0 L MCV 88 MCH 29.1 MCHC 33.1 RDW 15.3 H Plt Count 240 Seg Neutrophils % 70.3 Lymphocytes % 15.6 Monocytes % 12.9 Eosinophils % 0.0 Basophils % 1.2 Absolute Neutrophils 10.2 H Absolute Lymphocytes 2.3 Absolute Monocytes 1.9 H Absolute Eosinophils 0.0 Absolute Basophils 0.2 Sodium 140.0 Potassium 5.3 H Chloride 110 H Carbon Dioxide 19 L Anion Gap 11 BUN 31 H Creatinine 1.62 H Est GFR ( Amer) 49 L Est GFR (Non-Af Amer) 41 L Glucose 87 Calcium 8.7 Impressions: Chest X-Ray 08/22/16 16:43 IMPRESSION: RIGHT LOWER LOBE AIRSPACE DISEASE WITH POSSIBLE SMALL RIGHT PLEURAL EFFUSION MAY REPRESENT ATELECTASIS OR PNEUMONIA. CORRELATE WITH RESPIRATORY SYMPTOMS. Limited or Localized CT 08/22/16 20:46 IMPRESSION: Distended bladder with mild hydronephrosis and hydroureter. Ernst catheter balloon and tip are in the prostate gland. Larger right inguinal hernia which contains bowel in the appendix. No obstruction. Small bilateral pleural effusions. Assessment & Plan - Diagnosis (1) Hyperkalemia Is this a current diagnosis for this admission?: YesPlan: Most likely secondary to his renal failure. We'll continue with IV fluid. (2) Acute renal failure Qualifiers: Acute renal failure type: unspecified Qualified Code(s): N17.9 - Acute kidney failure, unspecified Is this a current diagnosis for this admission?: YesPlan: Patient was very anemic when he presented which contributed to the acute renal failure along with the Ernst catheter. We'll continue to monitor as he is given fluids. (3) Anemia requiring transfusions Is this a current diagnosis for this admission?: YesPlan: Patient's hemoglobin has improved. No evidence for active bleeding at this time. (4) Hydronephrosis Is this a current diagnosis for this admission?: YesPlan: Most likely was secondary to the Ernst catheter not draining properly. It has been replaced and we'll check another renal ultrasound Friday. (5) Prostate cancer Is this a current diagnosis for this admission?: Yes (6) UTI (urinary tract infection) due to urinary indwelling Ernst catheter Qualifiers: Indwelling urinary catheter type: indwelling urethral catheter Encounter type: initial encounter Qualified Code(s): T83.511A - Infection and inflammatory reaction due to indwelling urethral catheter, initial encounter; N39.0 - Urinary tract infection, site not specified Is this a current diagnosis for this admission?: YesPlan: Patient is on Rocephin. - Time Time Spent with patient: 25-34 minutes - Inpatient Certification Medical Necessity: Need For IV Fluids, Need for IV Antibiotics - Plan Summary Plan Summary: Patient will most likely need rehabilitation given his weakness from this hospitalization.
[2016-08-25] MEDS: CEFTRIAXONE SODIUM 1,500 MG in DEXTROSE 5%-WATER 100 ML IV SCH (17:26)
[2016-08-26] MEDS ORDERED: METOPROLOL TARTRATE PF/INJ 5 MG/5 ML SDV IV ONE (02:52)
[2016-08-26 03:29] LABS: ABSOLUTE BASOPHILS # (AUTO) 0.1 10^3/uL (0.0-0.2); ABSOLUTE LYMPHOCYTES (AUTO) 2.2 10^3/uL (0.5-4.7); ABSOLUTE MONOCYTES (AUTO) 2.1 10^3/uL (0.1-1.4); ABSOLUTE NEUT (AUTO) 11.7 10^3/uL (1.7-8.2); BASOPHILS % (AUTO) 0.5 % (0-2); HEMATOCRIT 30.3 % (37.9-51.0); HEMOGLOBIN 10.2 g/dL (13.5-17.0); HGB HCT DIFFERENCE 0.3; MEAN CORPUSCULAR HEMOGLOBIN 29.4 pg (27.0-33.4); MEAN CORPUSCULAR HGB CONC 33.6 g/dL (32.0-36.0); MEAN CORPUSCULAR VOLUME 87 fl (80-97); MONOCYTES % (AUTO) 12.9 % (3-13); RED BLOOD COUNT 3.46 10^6/uL (4.35-5.55); RED CELL DISTRIBUTION WIDTH 15.7 % (11.5-14.0); SEGMENTED NEUTROPHILS % (AUTO) 72.6 % (42-78); WHITE BLOOD COUNT 16.1 10^3/uL (4.0-10.5)
[2016-08-26 03:43] LABS: ANION GAP 9 (5-19); BLOOD UREA NITROGEN 27 mg/dL (7-20); CALCIUM 8.9 mg/dL (8.4-10.2); CARBON DIOXIDE 24 mmol/L (22-30); CHLORIDE 106 mmol/L (98-107); CREATINE KINASE 78 U/L (55-170); CREATININE RESULT 1.51 mg/dL (0.52-1.25); GLUCOSE 100 mg/dL (75-110); MAGNESIUM 1.7 mg/dL (1.6-2.3); SODIUM 138.8 mmol/L (137-145)
[2016-08-26 03:55] LABS: CREATINE KINASE MB 1.57 ng/mL (<4.55); TROPONIN I 0.023 ng/mL
[2016-08-26] MEDS ORDERED: LEVOFLOXACIN 750 MG/D5W RTU 750 MG/150 ML RTUPB IV ONE ×2 (04:23→05:00)
[2016-08-26] MEDS ORDERED: LEVOFLOXACIN 750 MG/D5W RTU 750 MG/150 ML RTUPB IV SCH ×2 (05:00→22:00)
[2016-08-26] MEDS: HEPARIN SOD (PORCINE) 5,000 UNIT/ML 1 ML SYRINGE SUBCUT SCH ×3 (05:05→21:09)
[2016-08-26] MEDS: FLUTICASONE/SALMETEROL DISKUS 100-50 MCG/DOSE IH SCH ×2 (05:22→17:55)
--- NOTE | 2016-08-26 08:43 | EKG REPORT ---
SEVERITY:- ABNORMAL ECG - ATRIAL FIBRILLATION IVCD, CONSIDER ATYPICAL LBBB : Confirmed by: Robin Corrales 26-Aug-2016 08:42:41
[2016-08-26] MEDS: DOCUSATE SODIUM 100 MG CAPSULE PO SCH ×2 (10:05→17:55)
[2016-08-26] MEDS: NYSTATIN/DEXAMETH/DIPHEN SUSP 120 ML PO SCH ×4 (10:05→21:09)
[2016-08-26 11:43] LABS: CREATINE KINASE MB 1.7 ng/mL (<4.55); TROPONIN I 0.02 ng/mL
--- NOTE | 2016-08-26 14:51 | PDOC PROGRESS REPORT ---
Subjective Progress Note for:: 08/26/16 Subjective:: He had an episode of atrial fibrillation yesterday evening. Physical Exam Vital Signs: Temp Pulse Resp BP Pulse Ox 98.1 F 94 16 127/74 H 97 08/26/16 11:54 08/26/16 14:30 08/26/16 14:30 08/26/16 11:54 08/26/16 14:30 Intake & Output 08/25/16 08/26/16 08/27/16 06:59 06:59 06:59 Intake Total 1850 1999 Output Total 3050 2950 Balance -1200 -950 Weight 95.6 kg 94 kg General appearance: PRESENT: no acute distress Eye exam: PRESENT: conjunctiva pink. ABSENT: scleral icterus Mouth exam: PRESENT: moist, tongue midline Neck exam: ABSENT: JVD Respiratory exam: PRESENT: clear to auscultation lauren. ABSENT: rales, rhonchi, wheezes Cardiovascular exam: PRESENT: irregular rhythm. ABSENT: diastolic murmur, rubs , systolic murmur GI/Abdominal exam: PRESENT: normal bowel sounds, soft. ABSENT: distended, guarding, mass, organolmegaly, rebound, tenderness Neurological exam: PRESENT: alert, awake, oriented to person, oriented to place , oriented to time, oriented to situation, CN II-XII grossly intact. ABSENT: motor sensory deficit Psychiatric exam: PRESENT: appropriate affect Results Laboratory Results: 08/26/16 03:21 08/26/16 03:21 08/26/16 08/26/16 03:21 03:21 WBC 16.1 H RBC 3.46 L Hgb 10.2 L Hct 30.3 L MCV 87 MCH 29.4 MCHC 33.6 RDW 15.7 H Plt Count 256 Seg Neutrophils % 72.6 Lymphocytes % 14.0 Monocytes % 12.9 Eosinophils % 0.0 Basophils % 0.5 Absolute Neutrophils 11.7 H Absolute Lymphocytes 2.2 Absolute Monocytes 2.1 H Absolute Eosinophils 0.0 Absolute Basophils 0.1 Sodium 138.8 Potassium 5.0 Chloride 106 Carbon Dioxide 24 Anion Gap 9 BUN 27 H Creatinine 1.51 H Est GFR ( Amer) 54 L Est GFR (Non-Af Amer) 44 L Glucose 100 Calcium 8.9 Magnesium 1.7 08/26/16 08/26/16 08/26/16 03:21 03:21 10:23 Creatine Kinase 78 85 CK-MB (CK-2) 1.57 Troponin I 0.023 08/26/16 10:23 Creatine Kinase CK-MB (CK-2) 1.70 Troponin I 0.020 Impressions: Chest X-Ray 08/22/16 16:43 IMPRESSION: RIGHT LOWER LOBE AIRSPACE DISEASE WITH POSSIBLE SMALL RIGHT PLEURAL EFFUSION MAY REPRESENT ATELECTASIS OR PNEUMONIA. CORRELATE WITH RESPIRATORY SYMPTOMS. Limited or Localized CT 08/22/16 20:46 IMPRESSION: Distended bladder with mild hydronephrosis and hydroureter. Ernst catheter balloon and tip are in the prostate gland. Larger right inguinal hernia which contains bowel in the appendix. No obstruction. Small bilateral pleural effusions. Assessment & Plan - Diagnosis (1) Hyperkalemia Is this a current diagnosis for this admission?: YesPlan: Resolved. (2) Acute renal failure Qualifiers: Acute renal failure type: unspecified Qualified Code(s): N17.9 - Acute kidney failure, unspecified Is this a current diagnosis for this admission?: YesPlan: Patient was very anemic when he presented which contributed to the acute renal failure along with the Ernst catheter. We'll continue to monitor as he is given fluids. (3) Anemia requiring transfusions Is this a current diagnosis for this admission?: YesPlan: Patient's hemoglobin has improved. No evidence for active bleeding at this time. (4) Hydronephrosis Is this a current diagnosis for this admission?: YesPlan: Most likely was secondary to the Ernst catheter not draining properly. It has been replaced and we'll check another renal ultrasound today. (5) Prostate cancer Is this a current diagnosis for this admission?: Yes (6) UTI (urinary tract infection) due to urinary indwelling Ernst catheter Qualifiers: Indwelling urinary catheter type: indwelling urethral catheter Encounter type: initial encounter Qualified Code(s): T83.511A - Infection and inflammatory reaction due to indwelling urethral catheter, initial encounter; N39.0 - Urinary tract infection, site not specified Is this a current diagnosis for this admission?: YesPlan: Patient is on Rocephin and was started on Levaquin last night. He is growing out Proteus. - Time Time Spent with patient: 25-34 minutes - Inpatient Certification Medical Necessity: Need for IV Antibiotics - Plan Summary Plan Summary: Patient can be discharged to rehabilitation when a bed becomes available.
[2016-08-26 16:22] LABS: CREATINE KINASE MB 1.59 ng/mL (<4.55); TROPONIN I 0.017 ng/mL
[2016-08-26] MEDS: CEFTRIAXONE SODIUM 1,500 MG in DEXTROSE 5%-WATER 100 ML IV SCH (17:55)
[2016-08-27] MEDS: FLUTICASONE/SALMETEROL DISKUS 100-50 MCG/DOSE IH SCH ×2 (05:30→17:10)
[2016-08-27] MEDS: HEPARIN SOD (PORCINE) 5,000 UNIT/ML 1 ML SYRINGE SUBCUT SCH ×3 (05:30→22:05)
[2016-08-27 07:18] LABS: ABSOLUTE BASOPHILS # (AUTO) 0.2 10^3/uL (0.0-0.2); ABSOLUTE LYMPHOCYTES (AUTO) 2.7 10^3/uL (0.5-4.7); ABSOLUTE MONOCYTES (AUTO) 1.5 10^3/uL (0.1-1.4); ABSOLUTE NEUT (AUTO) 8.6 10^3/uL (1.7-8.2); BASOPHILS % (AUTO) 1.2 % (0-2); HEMATOCRIT 29.8 % (37.9-51.0); HGB HCT DIFFERENCE 0.2; LYMPHOCYTES % (AUTO) 20.5 % (13-45); MEAN CORPUSCULAR HEMOGLOBIN 29.4 pg (27.0-33.4); MEAN CORPUSCULAR HGB CONC 33.4 g/dL (32.0-36.0); MEAN CORPUSCULAR VOLUME 88 fl (80-97); MONOCYTES % (AUTO) 11.6 % (3-13); RED BLOOD COUNT 3.39 10^6/uL (4.35-5.55); RED CELL DISTRIBUTION WIDTH 15.7 % (11.5-14.0); SEGMENTED NEUTROPHILS % (AUTO) 66.7 % (42-78); WHITE BLOOD COUNT 12.9 10^3/uL (4.0-10.5)
[2016-08-27 07:24] LABS: ANION GAP 10 (5-19); BLOOD UREA NITROGEN 30 mg/dL (7-20); CALCIUM 8.7 mg/dL (8.4-10.2); CARBON DIOXIDE 22 mmol/L (22-30); CHLORIDE 107 mmol/L (98-107); CREATININE RESULT 1.46 mg/dL (0.52-1.25); GLUCOSE 90 mg/dL (75-110); POTASSIUM 4.8 mmol/L (3.6-5.0); SODIUM 138.8 mmol/L (137-145)
[2016-08-27] MEDS: DOCUSATE SODIUM 100 MG CAPSULE PO SCH ×2 (09:21→17:10)
[2016-08-27] MEDS: NYSTATIN/DEXAMETH/DIPHEN SUSP 120 ML PO SCH ×4 (09:21→22:06)
--- NOTE | 2016-08-27 14:40 | PDOC PROGRESS REPORT ---
Subjective Progress Note for:: 08/27/16 Subjective:: Patient has no particular complaints. He is alert sitting up in bed and answers questions appropriate. Patient denies fever, chills, headache, new focal weakness, chest pain, shortness of breath, abdominal pain, nausea, vomiting, diarrhea, constipation. Physical Exam Vital Signs: Temp Pulse Resp BP Pulse Ox 98.1 F 97 22 H 126/71 H 99 08/27/16 11:25 08/27/16 11:25 08/27/16 11:25 08/27/16 11:25 08/27/16 11:25 Intake & Output 08/26/16 08/27/16 08/28/16 06:59 06:59 06:59 Intake Total 1999 1573 600 Output Total 2950 3300 400 Balance -950 -1727 200 Weight 94 kg 93 kg GENERAL: No acute distress HEENT: Conjunctiva clear, nonicteric, moist mucous membranes, no JVD, midline trachea RESPIRATORY: Clear to auscultation bilaterally, no wheezes, no rhonchi CARDIAC: Regular rate and rhythm, no murmurs/gallops/rubs ABDOMEN: Soft, nondistended, nontender, positive bowel sounds, no rebound, no guarding EXTREMETIES: No edema, cyanosis, clubbing NEUROLOGIC: Alert, mild expressive aphasia, oriented to person/place/time, CN's grossly intact, contracture in left hand SKIN: No rash, wounds PSYCH: Normal mood, normal affect Results Laboratory Results: 08/27/16 06:28 08/27/16 06:28 08/27/16 08/27/16 06:28 06:28 WBC 12.9 H RBC 3.39 L Hgb 10.0 L Hct 29.8 L MCV 88 MCH 29.4 MCHC 33.4 RDW 15.7 H Plt Count 238 Seg Neutrophils % 66.7 Lymphocytes % 20.5 Monocytes % 11.6 Eosinophils % 0.0 Basophils % 1.2 Absolute Neutrophils 8.6 H Absolute Lymphocytes 2.7 Absolute Monocytes 1.5 H Absolute Eosinophils 0.0 Absolute Basophils 0.2 Sodium 138.8 Potassium 4.8 Chloride 107 Carbon Dioxide 22 Anion Gap 10 BUN 30 H Creatinine 1.46 H Est GFR ( Amer) 56 L Est GFR (Non-Af Amer) 46 L Glucose 90 Calcium 8.7 08/26/16 08/26/16 08/26/16 03:21 03:21 10:23 Creatine Kinase 78 85 CK-MB (CK-2) 1.57 Troponin I 0.023 08/26/16 08/26/16 08/26/16 10:23 15:35 15:35 Creatine Kinase 60 CK-MB (CK-2) 1.70 1.59 Troponin I 0.020 0.017 Impressions: Chest X-Ray 08/22/16 16:43 IMPRESSION: RIGHT LOWER LOBE AIRSPACE DISEASE WITH POSSIBLE SMALL RIGHT PLEURAL EFFUSION MAY REPRESENT ATELECTASIS OR PNEUMONIA. CORRELATE WITH RESPIRATORY SYMPTOMS. Limited or Localized CT 08/22/16 20:46 IMPRESSION: Distended bladder with mild hydronephrosis and hydroureter. Ernst catheter balloon and tip are in the prostate gland. Larger right inguinal hernia which contains bowel in the appendix. No obstruction. Small bilateral pleural effusions. Renal Ultrasound 08/27/16 00:00 IMPRESSION: No hydronephrosis. Bilateral renal cortical cysts. Ernst catheter balloon is in the decompressed bladder. Assessment & Plan - Diagnosis (1) Acute renal failure Qualifiers: Acute renal failure type: unspecified Qualified Code(s): N17.9 - Acute kidney failure, unspecified Is this a current diagnosis for this admission?: YesPlan: Secondary to malfunctioning Ernst catheter, CHLOE inhibitor, and Bactrim. Renal U/ S w/o obtruction. (2) Malfunction of Ernst catheter Qualifiers: Encounter type: sequela Qualified Code(s): T83.011S - Breakdown ( mechanical) of indwelling urethral catheter, sequela Is this a current diagnosis for this admission?: Yes (3) Anemia Is this a current diagnosis for this admission?: YesPlan: Status post transfusion 4 units PRBC. Hemoccult positive. H&H stable posttransfusion. Tolerating subcutaneous heparin for DVT prophylaxis. Monitor closely while restarting Plavix. Primary care provider will need to workup Hemoccult-positive stools. (4) Coronary artery disease Is this a current diagnosis for this admission?: YesPlan: Restart Plavix, Lipitor, atenolol, Imdur. (5) History of stroke Is this a current diagnosis for this admission?: YesPlan: Plavix, Lipitor. Patient continues to have mild expressive aphasia and ambulatory dysfunction. (6) Prostate cancer Is this a current diagnosis for this admission?: Yes (7) UTI (urinary tract infection) due to urinary indwelling Ernst catheter Qualifiers: Indwelling urinary catheter type: indwelling urethral catheter Encounter type: initial encounter Qualified Code(s): T83.511A - Infection and inflammatory reaction due to indwelling urethral catheter, initial encounter; N39.0 - Urinary tract infection, site not specified Is this a current diagnosis for this admission?: YesPlan: Culture growing Proteus mirabilis. Discontinue IV antibiotics. Start oral Keflex based on susceptibility. (8) Ambulatory dysfunction Is this a current diagnosis for this admission?: YesPlan: Physical therapy has evaluated patient and recommends intermediate facility for rehabilitation. - Time Time Spent with patient: 35 or more minutes Anticipated discharge: Acute Rehab
[2016-08-27] MEDS: FERROUS SULFATE 325 MG TABLET PO SCH (17:10)
[2016-08-27] MEDS: CEPHALEXIN 500 MG CAPSULE PO SCH (22:04)
[2016-08-28] MEDS ORDERED: LEVOFLOXACIN 750 MG/D5W RTU 750 MG/150 ML RTUPB IV SCH (06:00)
[2016-08-28 06:04] LABS: ABSOLUTE BASOPHILS # (AUTO) 0.1 10^3/uL (0.0-0.2); ABSOLUTE LYMPHOCYTES (AUTO) 2.2 10^3/uL (0.5-4.7); ABSOLUTE MONOCYTES (AUTO) 1.2 10^3/uL (0.1-1.4); BASOPHILS % (AUTO) 1.2 % (0-2); HEMATOCRIT 30.3 % (37.9-51.0); HEMOGLOBIN 10.2 g/dL (13.5-17.0); HGB HCT DIFFERENCE 0.3; LYMPHOCYTES % (AUTO) 20.5 % (13-45); MEAN CORPUSCULAR HEMOGLOBIN 29.5 pg (27.0-33.4); MEAN CORPUSCULAR HGB CONC 33.6 g/dL (32.0-36.0); MEAN CORPUSCULAR VOLUME 88 fl (80-97); MONOCYTES % (AUTO) 11.9 % (3-13); RED BLOOD COUNT 3.45 10^6/uL (4.35-5.55); RED CELL DISTRIBUTION WIDTH 15.6 % (11.5-14.0); SEGMENTED NEUTROPHILS % (AUTO) 66.4 % (42-78); WHITE BLOOD COUNT 10.5 10^3/uL (4.0-10.5)
[2016-08-28] MEDS: HEPARIN SOD (PORCINE) 5,000 UNIT/ML 1 ML SYRINGE SUBCUT SCH ×2 (06:11→13:06)
[2016-08-28] MEDS: CEPHALEXIN 500 MG CAPSULE PO SCH ×2 (06:11→13:06)
[2016-08-28] MEDS: FLUTICASONE/SALMETEROL DISKUS 100-50 MCG/DOSE IH SCH (06:13)
[2016-08-28 06:17] LABS: ANION GAP 11 (5-19); BLOOD UREA NITROGEN 36 mg/dL (7-20); CALCIUM 9.1 mg/dL (8.4-10.2); CARBON DIOXIDE 22 mmol/L (22-30); CHLORIDE 108 mmol/L (98-107); CREATININE RESULT 1.48 mg/dL (0.52-1.25); GLUCOSE 90 mg/dL (75-110); POTASSIUM 4.5 mmol/L (3.6-5.0); SODIUM 140.9 mmol/L (137-145)
[2016-08-28] MEDS: NYSTATIN/DEXAMETH/DIPHEN SUSP 120 ML PO SCH ×2 (09:47→13:06)
[2016-08-28] MEDS: DOCUSATE SODIUM 100 MG CAPSULE PO SCH (09:50)
[2016-08-28] MEDS: FERROUS SULFATE 325 MG TABLET PO SCH (09:51)
[2016-08-28] MEDS ORDERED: ATORVASTATIN CALCIUM 10 MG TABLET PO SCH (10:00)
[2016-08-28] MEDS ORDERED: ATENOLOL 50 MG TABLET PO SCH (10:00)
[2016-08-28] MEDS ORDERED: ISOSORBIDE MONONITRATE 30 MG TAB.ER.24H PO SCH (10:00)
[2016-08-28] MEDS ORDERED: CLOPIDOGREL BISULFATE 75 MG TABLET PO SCH (10:00)
--- NOTE | 2016-08-28 12:22 | PDOC TRANSFER SUMMARY ---
General - Admit/Disc Date/PCP Admission Date/Primary Care Provider: 08/22/16 21:52 ANTONY SEGOVIA MD Discharge Date: 08/28/16 - Discharge Diagnosis (1) Acute renal failure Is this a current diagnosis for this admission?: Yes (2) Malfunction of Ernst catheter Is this a current diagnosis for this admission?: Yes (3) Anemia Is this a current diagnosis for this admission?: Yes (4) Coronary artery disease Is this a current diagnosis for this admission?: Yes (5) History of stroke Is this a current diagnosis for this admission?: Yes (6) Prostate cancer Is this a current diagnosis for this admission?: Yes (7) UTI (urinary tract infection) due to urinary indwelling Ernst catheter Is this a current diagnosis for this admission?: Yes (8) Ambulatory dysfunction Is this a current diagnosis for this admission?: Yes - Additional Information Resuscitation Status: Do Not Resuscitate Discharge Diet: Cardiac Discharge Activity: Activity As Tolerated Home Medications: Amlodipine Besylate [Norvasc 10 mg Tablet] 10 mg PO DAILY 08/23/16 Atenolol [Tenormin 50 mg Tablet] 50 mg PO DAILY 08/23/16 Atorvastatin Calcium [Lipitor 10 mg Tablet] 10 mg PO DAILY 08/23/16 Clopidogrel Bisulfate [Plavix 75 mg Tablet] 75 mg PO DAILY 08/23/16 Ferrous Sulfate [Feosol 325 mg Tablet] 325 mg PO BID 08/23/16 Fluticasone/Salmeterol [Advair 100-50 Diskus 14 Dose/Diskus] 1 puff IH BID 08/23 Isosorbide Mononitrate [Imdur 30 mg Tablet.er] 30 mg PO DAILY 08/23/16 Acetaminophen [Tylenol 325 mg Tablet] 650 mg PO Q4HP PRN tablet 08/28/16 Cephalexin Monohydrate [Keflex 500 mg Capsule] 500 mg PO Q8 10 Days 08/28/16 Docusate Sodium [Colace 100 mg Capsule] 100 mg PO BID capsule 08/28/16 Ipratropium/Albuterol Sulfate [Duoneb 3 ml Ampul] 3 ml NEB RTQ6HP PRN vial.neb 08/28/16 Mag Hydrox/Al Hydrox/Simeth [Maalox Plus Susp 30 Udcup] 30 ml PO Q6HP PRN udc 08/28/16 Magnesium Hydroxide [Milk of Magnesia 30 ml Udcup] 30 ml PO HSP PRN udc History of Present Illness Admission Date/PCP: 08/22/16 21:52 ANTONY SEGOVIA MD Patient complains of: Generalized weakness History of Present Illness: BLANCA ZIMMER is a 81 year old male with a past medical history of congestive heart failure, remote CVA with dysarthria, coronary artery disease, prostate cancer and chronic indwelling Ernst catheter and recent urinary tract infection who had his Ernst exchanged approximately 2 weeks ago and placed on Bactrim 10 days living with generalized weakness and diarrhea without nausea vomiting or chest pain. In the emergency room he's found to have hyperkalemia with peaked T waves, acute renal failure, leukocytosis and urinalysis suggestive of pyelonephritis a CT scan is obtained showing dilated urinary bladder and bilateral hydronephrosis. Ernst catheter is replaced resulting in 1500 mL of urine he started on empiric antibiotic's referred to the hospitalist for admission Hospital Course Hospital Course: Patient was admitted for urinary tract infection, hyperkalemia, hydronephrosis secondary to malfunctioning Ernst catheter, and acute kidney injury. With regard to acute kidney injury and hydronephrosis this resolved with replacement of Ernst catheter, with holding CHLOE inhibitor, treating urinary tract infection. Follow-up renal ultrasound showed resolution of hydronephrosis. Patient's Ernst catheter will need to be changed monthly. He has chronic Ernst catheter secondary to prostate cancer. Patient has urinary tract infection complicated by chronic indwelling Ernst catheter. Urine culture grew Proteus mirabilis sensitive to cephalosporin. Patient was initially on IV antibiotics but now has been transitioned to oral cephalexin. Patient has ambulatory dysfunction and generalized weakness. He has been evaluated by physical therapy and needs ongoing rehabilitation. [facility]. Patient has anemia requiring transfusion 4 units PRBC. He has Hemoccult- positive stools. He will need further outpatient workup for this. He should have follow-up H&H given the fact that he is on Plavix. Patient has a history of stroke and coronary artery disease. He is on Plavix, atenolol, Imdur, and Lipitor. Physical Exam Vital Signs: Temp Pulse Resp BP Pulse Ox 98.3 F 88 16 146/65 H 99 08/28/16 06:59 08/28/16 07:50 08/28/16 06:59 08/28/16 06:59 08/28/16 06:59 Intake & Output 08/27/16 08/28/16 08/29/16 06:59 06:59 06:59 Intake Total 1573 1288 Output Total 3300 1550 Balance -5023 -276 Weight 93 kg 91.9 kg GENERAL: No acute distress HEENT: Conjunctiva clear, nonicteric, moist mucous membranes, no JVD, midline trachea RESPIRATORY: Clear to auscultation bilaterally, no wheezes, no rhonchi CARDIAC: Regular rate and rhythm, no murmurs/gallops/rubs ABDOMEN: Soft, nondistended, nontender, positive bowel sounds, no rebound, no guarding EXTREMETIES: No edema, cyanosis, clubbing NEUROLOGIC: Alert, mild expressive aphasia, oriented to person/place/time, CN's grossly intact, contracture in left hand SKIN: No rash, wounds PSYCH: Normal mood, normal affect Results Laboratory Results: 08/28/16 05:24 08/28/16 05:24 08/28/16 08/28/16 05:24 05:24 WBC 10.5 RBC 3.45 L Hgb 10.2 L Hct 30.3 L MCV 88 MCH 29.5 MCHC 33.6 RDW 15.6 H Plt Count 241 Seg Neutrophils % 66.4 Lymphocytes % 20.5 Monocytes % 11.9 Eosinophils % 0.0 Basophils % 1.2 Absolute Neutrophils 7.0 Absolute Lymphocytes 2.2 Absolute Monocytes 1.2 Absolute Eosinophils 0.0 Absolute Basophils 0.1 Sodium 140.9 Potassium 4.5 Chloride 108 H Carbon Dioxide 22 Anion Gap 11 BUN 36 H Creatinine 1.48 H Est GFR ( Amer) 55 L Est GFR (Non-Af Amer) 45 L Glucose 90 Calcium 9.1 08/26/16 08/26/16 08/26/16 03:21 03:21 10:23 Creatine Kinase 78 85 CK-MB (CK-2) 1.57 Troponin I 0.023 08/26/16 08/26/16 08/26/16 10:23 15:35 15:35 Creatine Kinase 60 CK-MB (CK-2) 1.70 1.59 Troponin I 0.020 0.017 Impressions: Chest X-Ray 08/22/16 16:43 IMPRESSION: RIGHT LOWER LOBE AIRSPACE DISEASE WITH POSSIBLE SMALL RIGHT PLEURAL EFFUSION MAY REPRESENT ATELECTASIS OR PNEUMONIA. CORRELATE WITH RESPIRATORY SYMPTOMS. Limited or Localized CT 08/22/16 20:46 IMPRESSION: Distended bladder with mild hydronephrosis and hydroureter. Ernst catheter balloon and tip are in the prostate gland. Larger right inguinal hernia which contains bowel in the appendix. No obstruction. Small bilateral pleural effusions. Renal Ultrasound 08/27/16 00:00 IMPRESSION: No hydronephrosis. Bilateral renal cortical cysts. Ernst catheter balloon is in the decompressed bladder. Transfer Plan - Time Spent with Patient Time spent with patient: Greater than 30 Minutes Qualifiers PATEINT BEING DISCHARGED WITH ANY OF THE FOLLOWING DIAGNOSIS?: No
[2016-08-28 12:33] VITALS: BP 128/74
== END 2016-08-28 17:00 | DRG 699 ==
LOC: ER 16:08 → EH 21:52 → 3W 08-23 01:30
PROVIDERS: ADMIT Internal Medicine; ATTEND Internal Medicine
PROC: 30233N1 Transfusion of Nonautologous Red Blood Cells into Peripheral Vein, Percutaneous Approach (ICD-10-PCS; principal; 2016-08-22)
PROC: 30233N1 Transfusion of Nonautologous Red Blood Cells into Peripheral Vein, Percutaneous Approach (ICD-10-PCS; 2016-08-23)
DX: T83.098A Other mechanical complication of other urinary catheter, initial encounter (principal); T83.511A Infection and inflammatory reaction due to indwelling urethral catheter, initial encounter; N17.9 Acute kidney failure, unspecified; N13.6 Pyonephrosis; N39.0 Urinary tract infection, site not specified; I25.10 Atherosclerotic heart disease of native coronary artery without angina pectoris; I69.322 Dysarthria following cerebral infarction; I69.320 Aphasia following cerebral infarction; E87.5 Hyperkalemia; D72.829 Elevated white blood cell count, unspecified; R33.8 Other retention of urine; B96.4 Proteus (mirabilis) (morganii) as the cause of diseases classified elsewhere; R19.5 Other fecal abnormalities; C61 Malignant neoplasm of prostate; D64.9 Anemia, unspecified; I11.0 Hypertensive heart disease with heart failure; I50.9 Heart failure, unspecified; E78.5 Hyperlipidemia, unspecified; I48.91 Unspecified atrial fibrillation; Y73.8 Miscellaneous gastroenterology and urology devices associated with adverse incidents, not elsewhere classified; Z66 Do not resuscitate; M19.90 Unspecified osteoarthritis, unspecified site; Z95.1 Presence of aortocoronary bypass graft; Z79.02 Long term (current) use of antithrombotics/antiplatelets; Z79.899 Other long term (current) drug therapy; Z90.49 Acquired absence of other specified parts of digestive tract; Z82.49 Family history of ischemic heart disease and other diseases of the circulatory system; Z82.3 Family history of stroke; Z83.3 Family history of diabetes mellitus; Z80.9 Family history of malignant neoplasm, unspecified
CPT/HCPCS: 36415; 36430; 71020; 76380; 76770; 80048; 80076; 81001; 82272; 82550; 82553; 82607; 82728; 82746; 83540; 83550; 83605; 83690; 83735; 83880; 84466; 84484; 85025; 85045; 85610; 85730; 86850; 86900; 86901; 86920; 87040; 87086; 87088; 87186; 87493; 93005; 93010; 94640; 96365; 99285; G8978-GP; G8979-GP; J0692; J0696; J1644; J1956; J3490; J7030; J7040; J7620; P9016

== ENCOUNTER 2019-03-06 09:03 | Emergency (ER) | payer MEDICARE, BC ==
[2019-03-06] MEDS ORDERED: NORMAL SALINE 500 ML IV ONE (09:26)
[2019-03-06] MEDS ORDERED: PANTOPRAZOLE SODIUM 40 MG VIAL IV ONE (09:27)
[2019-03-06 09:45] LABS: ABSOLUTE EOSINOPHILS # (AUTO) 0.7 10^3/uL (0.0-0.6); ABSOLUTE MONOCYTES (AUTO) 1.1 10^3/uL (0.1-1.4); ABSOLUTE NEUT (AUTO) 10.6 10^3/uL (1.7-8.2); BASOPHILS % (AUTO) 0.3 % (0-2); EOSINOPHILS % (AUTO) 4.6 % (0-6); HEMATOCRIT 19.3 % (37.9-51.0); LYMPHOCYTES % (AUTO) 13.7 % (13-45); MEAN CORPUSCULAR HEMOGLOBIN 21.1 pg (27.0-33.4); MEAN CORPUSCULAR HGB CONC 30.4 g/dL (32.0-36.0); MEAN CORPUSCULAR VOLUME 69 fl (80-97); MONOCYTES % (AUTO) 7.7 % (3-13); PLATELET COUNT 223 10^3/uL (150-450); RED BLOOD COUNT 2.79 10^6/uL (4.35-5.55); SEGMENTED NEUTROPHILS % (AUTO) 73.7 % (42-78); TOTAL CELLS COUNTED % (AUTO) 100 %; WHITE BLOOD COUNT 14.4 10^3/uL (4.0-10.5)
--- NOTE | 2019-03-06 09:46 | ER Document Report ---
ED General - General Chief Complaint: GI Bleeding Stated Complaint: POSSIBLE GI BLEED Time Seen by Provider: 03/06/19 09:18 Primary Care Provider: ANTONY SEGOVIA MD [Primary Care Provider] - Follow up as needed Mode of Arrival: Medic Information source: Patient, Relative, Emergency Med Personnel, [facility] Records Notes: 84-year-old male with congestive heart failure, hypertension, previous CVA with speech deficits, previous history of peptic ulcer presents via EMS from home with black stools. Because of speech difficulty patient is unable to provide history but [id number] who is the power of tax attorney is at the bedside and states that the patient had brown stool yesterday but when he woke up and she removed him from bed she noticed bright red blood and black stools. She reports patient was admitted to [facility] approximately 2 years ago for a "bleeding ulcer". Patient is a DNR. She does want the patient transferred. Patient denies any chest pain, shortness of breath, abdominal pain. [id number] reports recent upper respiratory infection for which the patient was treated with Levaquin, prednisone. EMS reports that upon their arrival patient was found to be hypoxic at 90% was placed on 2 L nasal cannula. Patient does take Plavix. TRAVEL OUTSIDE OF THE [place] IN LAST 30 DAYS: No - HPI Onset: This morning Onset/Duration: Sudden Quality of pain: No pain Severity: None Pain Level: Denies Associated symptoms: Nonproductive cough. denies: Chest pain, Diarrhea, Fever, Nausea, Vomiting, Shortness of breath Exacerbated by: Denies Relieved by: Denies Similar symptoms previously: Yes Recently seen / treated by doctor: No - Related Data Allergies/Adverse Reactions: No Known Allergies Allergy (Verified 12/12/16 21:07) Past Medical History - General Information source: Patient, Relative, [facility] Records - Social History Smoking Status: Former Smoker Frequency of alcohol use: None Drug Abuse: None Lives with: Family Family History: Arthritis, CAD, CVA, DM, Hyperlipidemia, Hypertension, Malignanc y - Past Medical History Cardiac Medical History: Reports: Hx Congestive Heart Failure, Hx Coronary Artery Disease, Hx Hypercholesterolemia, Hx Hypertension Denies: Hx Heart Attack, Hx Heart Murmur Pulmonary Medical History: Reports: Hx Pneumonia Denies: Hx Asthma, Hx Tuberculosis Neurological Medical History: Reports: Hx Cerebrovascular Accident - 2000. Denies: Hx Seizures, Hx Parkinson's Disease Renal/ Medical History: Reports: Hx Benign Prostatic Hyperplasia. Denies: Hx Peritoneal Dialysis Malignancy Medical History: Reports Hx Prostate Cancer GI Medical History: Reports: Hx Gastroesophageal Reflux Disease. Denies: Hx Hepatitis, Hx Hiatal Hernia Musculoskeletal Medical History: Reports Hx Arthritis Infectious Medical History: Denies: Hx Hepatitis Past Surgical History: Reports: Hx Appendectomy, Hx Coronary Artery Bypass Graft, Hx Open Heart Surgery - 1999. Denies: Hx Pacemaker - Immunizations Immunizations up to date: Yes Hx Diphtheria, Pertussis, Tetanus Vaccination: Yes Hx Pneumococcal Vaccination: 02/10/12 Review of Systems - Review of Systems Notes: REVIEW OF SYSTEMS: CONSTITUTIONAL : Denies fever, chills, or sweats. + recent illness. Denies weight loss, recent hospitalizations. EENT: Denies visual changes, eye pain. Denies sore throat, oral lesions, difficulty swallowing. CARDIOVASCULAR: Denies chest pain. Denies palpitations. Denies lower extremity edema. RESPIRATORY: Denies cough. Denies shortness of breath, wheezing. GASTROINTESTINAL: Denies abdominal pain or distention. Denies nausea, vomiting, or diarrhea. Denies blood in vomitus, stools, or per rectum. + black, tarry stools. Denies constipation. GENITOURINARY: Denies difficulty urinating, painful urination, frequency, blood in urine, testicular pain or penile discharge. MUSCULOSKELETAL: Denies back or neck pain or stiffness. Denies joint pain or swelling. SKIN: Denies rash, lesions or sores. HEMATOLOGIC : Denies easy bruising or bleeding. LYMPHATIC: Denies swollen glands. NEUROLOGICAL: Denies confusion or altered mental status. Denies loss of consciousness. Denies dizziness or lightheadedness. Denies headache. Denies weakness or paralysis. Denies problems difficulty with ambulation, slurred speech. Denies sensory loss, numbness, or tingling. Denies seizures. PSYCHIATRIC: Denies anxiety or stress. Denies depression, suicidal ideation, or Physical Exam - Vital signs Vitals: Resp Pulse Ox 23 H 99 03/06/19 09:08 03/06/19 09:08 - Notes Notes: PHYSICAL EXAMINATION: GENERAL: Well-appearing, well-nourished and in no acute distress. HEAD: Atraumatic, normocephalic. EYES: Pupils equal round and reactive to light, extraocular movements intact, sclera anicteric, conjunctiva are normal. ENT: Nares patent, oropharynx clear without exudates. Dry mucous membranes. NECK: Normal range of motion, supple without lymphadenopathy LUNGS: Breath sounds clear to auscultation bilaterally and equal. No wheezes rales or rhonchi. HEART: Regular rate and rhythm without murmurs ABDOMEN: Soft, nontender, nondistended abdomen. No guarding, no rebound. No masses appreciated. Black stool Hemoccult positive Musculoskeletal: Normal range of motion, no pitting or edema. No cyanosis. NEUROLOGICAL: Cranial nerves grossly intact. Severe dysarthria. GCS 15 PSYCH: Normal mood, normal affect. SKIN: Warm, Dry, normal turgor, no rashes or lesions noted. Course - Re-evaluation Re-evalutation: 03/06/19 10:13 Laboratory 03/06/19 03/06/19 03/06/19 09:13 09:13 09:13 WBC 14.4 H RBC 2.79 L Hgb 5.9 L Hct 19.3 L MCV 69 L MCH 21.1 L MCHC 30.4 L RDW 19.0 H Plt Count 223 Lymph % (Auto) 13.7 Smith % (Auto) 7.7 Eos % (Auto) 4.6 Baso % (Auto) 0.3 Absolute Neuts (auto) 10.6 H Absolute Lymphs (auto) 2.0 Absolute Monos (auto) 1.1 Absolute Eos (auto) 0.7 H Absolute Basos (auto) 0.0 Seg Neutrophils % 73.7 PT 14.8 INR 1.15 APTT 30.7 VBG pH VBG pCO2 VBG HCO3 VBG Base Excess Sodium 137.7 Potassium 4.7 Chloride 109 H Carbon Dioxide 22 Anion Gap 7 BUN 54 H Creatinine 1.57 H Est GFR ( Amer) 51 L Est GFR (MDRD) Non-Af 42 L Glucose 102 Lactic Acid Calcium 7.8 L Total Bilirubin 0.3 Direct Bilirubin 0.0 Neonat Total Bilirubin Not Reportable Neonat Direct Bilirubin Not Reportable Neonat Indirect Bili Not Reportable AST 21 ALT 15 Alkaline Phosphatase 48 Total Protein 5.1 L Albumin 2.4 L Crossmatch 03/06/19 03/06/19 03/06/19 09:13 09:13 09:40 WBC RBC Hgb Hct MCV MCH MCHC RDW Plt Count Lymph % (Auto) Smith % (Auto) Eos % (Auto) Baso % (Auto) Absolute Neuts (auto) Absolute Lymphs (auto) Absolute Monos (auto) Absolute Eos (auto) Absolute Basos (auto) Seg Neutrophils % PT INR APTT VBG pH 7.37 VBG pCO2 38.8 VBG HCO3 21.7 VBG Base Excess -3.3 Sodium Potassium Chloride Carbon Dioxide Anion Gap BUN Creatinine Est GFR ( Amer) Est GFR (MDRD) Non-Af Glucose Lactic Acid 2.4 H Calcium Total Bilirubin Direct Bilirubin Neonat Total Bilirubin Neonat Direct Bilirubin Neonat Indirect Bili AST ALT Alkaline Phosphatase Total Protein Albumin Crossmatch See Detail Temp Pulse Resp BP Pulse Ox 99.3 F 60 22 H 126/61 H 99 03/06/19 15:12 03/06/19 13:15 03/06/19 15:14 03/06/19 15:14 03/06/19 15:14 Chest X-Ray 03/06/19 09:46 IMPRESSION: Extensive opacities. Question aspiration complex. Temp Pulse Resp BP Pulse Ox 99.3 F 60 22 H 126/61 H 99 03/06/19 15:12 03/06/19 13:15 03/06/19 15:14 03/06/19 15:14 03/06/19 15:14 Hemoglobin 5.9 03/06/19 10:35 [facility] for transfer. 03/06/19 15:19 84-year-old male with congestive heart failure, hypertension, previous CVA with speech deficits, previous history of peptic ulcer presents via EMS from home with black stools. Because of speech difficulty patient is unable to provide history but [id number] who is the power of tax attorney is at the bedside and states that the patient had brown stool yesterday but when he woke up and she removed him from bed she noticed bright red blood and black stools. Vital signs reviewed and within normal limits. Patient does not appear toxic but he does appear dehydrated. Patient has a benign abdominal exam. Stool was black, Hemoccult positive. Hemoglobin found to be 5.9. After 2 units of PRBCs repeat hemoglobin is 7.8. Patient received IV Protonix, cefepime and Zosyn for aspiration pneumonia. Patient was accepted to [facility] by Dr. Maria. Patient was evaluated upon transfer team arrival and remained stable for transfer. - Vital Signs Vital signs: Temp Pulse Resp BP Pulse Ox 98.9 F 60 23 H 139/63 H 97 03/06/19 14:38 03/06/19 13:15 03/06/19 13:45 03/06/19 13:45 03/06/19 13:45 - Laboratory Result Diagrams: 03/06/19 14:42 03/06/19 09:13 Laboratory results interpreted by me: 03/06/19 03/06/19 03/06/19 09:13 09:13 09:13 WBC 14.4 H RBC 2.79 L Hgb 5.9 L Hct 19.3 L MCV 69 L MCH 21.1 L MCHC 30.4 L RDW 19.0 H Absolute Neuts (auto) 10.6 H Absolute Eos (auto) 0.7 H Chloride 109 H BUN 54 H Creatinine 1.57 H Est GFR ( Amer) 51 L Est GFR (MDRD) Non-Af 42 L Lactic Acid 2.4 H Calcium 7.8 L Total Protein 5.1 L Albumin 2.4 L Crossmatch 03/06/19 03/06/19 09:13 14:42 WBC 15.5 H RBC 3.38 L Hgb 7.8 L Hct 24.7 L MCV 73 L D MCH 23.2 L MCHC 31.7 L RDW 20.6 H Absolute Neuts (auto) 11.3 H Absolute Eos (auto) Chloride BUN Creatinine Est GFR ( Amer) Est GFR (MDRD) Non-Af Lactic Acid Calcium Total Protein Albumin Crossmatch See Detail - Diagnostic Test Radiology reviewed: Image reviewed, Reports reviewed - EKG Interpretation by Me EKG shows normal: Sinus rhythm Rate: Normal Rhythm: NSR [place]/QRS: LBBB When compared to previous EKG there are: No significant change Critical Care Note - Critical Care Note Total time excluding time spent on procedures (mins): 35 - Minutes of critical care time spent in direct contact evaluating and reevaluating the patient, treating symptoms, reviewing labs and studies and speaking with family and consultants excluding any procedures Discharge - Discharge Clinical Impression: Upper GI bleed, History of stroke Aspiration pneumonia Qualifiers: Aspiration pneumonia type: unspecified Laterality: bilateral Lung location: upper lobe of lung Qualified Code(s): J69.0 - Pneumonitis due to inhalation of food and vomit Anemia Qualifiers: Anemia type: unspecified type Qualified Code(s): D64.9 - Anemia, unspecified Condition: Stable Disposition: [facility] Referrals: ANTONY SEGOVIA MD [Primary Care Provider] - Follow up as needed
[2019-03-06 09:47] LABS: HEMOGLOBIN 5.9 g/dL (13.5-17.0); INTERNATIONAL RATION (INR) 1.15; PROTHROMBIN TIME 14.8 SEC (11.4-15.4)
[2019-03-06 09:48] LABS: PARTIAL THROMBOPLASTIN TIME 30.7 SEC (23.5-35.8)
[2019-03-06] MEDS ORDERED: ACETAMINOPHEN 325 MG TABLET PO PRN (09:48)
[2019-03-06] MEDS ORDERED: NORMAL SALINE 250 ML IV PRN (09:48)
[2019-03-06] MEDS ORDERED: DIPHENHYDRAMINE HCL 25 MG CAPSULE PO PRN (09:48)
[2019-03-06] MEDS ORDERED: FUROSEMIDE INJ/PF 20 MG/2 ML SDV IV PRN (09:48)
[2019-03-06 09:49] LABS: ALBUMIN 2.4 g/dL (3.5-5.0); ALKALINE PHOSPHATASE 48 U/L (38-126); ANION GAP 7 (5-19); ASPARTATE AMINO TRANSFERASE 21 U/L (17-59); BILIRUBIN,TOTAL 0.3 mg/dL (0.2-1.3); BLOOD UREA NITROGEN 54 mg/dL (7-20); CALCIUM 7.8 mg/dL (8.4-10.2); CARBON DIOXIDE 22 mmol/L (22-30); CHLORIDE 109 mmol/L (98-107); GLUCOSE 102 mg/dL (75-110); POTASSIUM 4.7 mmol/L (3.6-5.0); TOTAL PROTEIN 5.1 g/dL (6.3-8.2)
[2019-03-06 10:01] LABS: VENOUS BLOOD BASE EXCESS -3.3 mmol/L; VENOUS BLOOD HCO3 21.7 mmol/L (20-32); VENOUS BLOOD PCO2 38.8 mmHg (35-63); VENOUS BLOOD PH 7.37 (7.30-7.42)
--- NOTE | 2019-03-06 10:14 | RADIOLOGY REPORT (SQ) ---
EXAM DESCRIPTION: CHEST SINGLE VIEW COMPLETED DATE/TIME: 03/06/2019 9:56 am REASON FOR STUDY: hypoxia COMPARISON: 08/22/2016 EXAM PARAMETERS: NUMBER OF VIEWS: One view. TECHNIQUE: Single frontal radiographic view of the chest acquired. RADIATION DOSE: NA LIMITATIONS: None. FINDINGS: LUNGS AND PLEURA: Extensive parenchymal opacities in the right upper lobe and left upper l obe and left lower lobe. Small bilateral pleural effusions. No pneumothorax. MEDIASTINUM AND HILAR STRUCTURES: No masses. Contour normal. HEART AND VASCULAR STRUCTURES: Heart normal in size. Normal vasculature. BONES: No acute findings. HARDWARE: Sternal wires. OTHER: No other significant finding. IMPRESSION: Extensive opacities. Question aspiration complex. TECHNICAL DOCUMENTATION: JOB ID: [id number]- All Rights Reserved Reading location - IP/workstation name: [email or web address]
[2019-03-06] MEDS ORDERED: PIPERACILLIN/TAZOBACTAM 3.375 GM VIAL IV ONE (10:41)
[2019-03-06] MEDS ORDERED: CLINDAMYCIN 300 MG/D5W RTU 300 MG/50 ML RTUPB IV ONE (10:42)
[2019-03-06] MEDS ORDERED: FUROSEMIDE INJ/PF 20 MG/2 ML SDV IV ONE ×2 (10:42→12:29)
[2019-03-06] MEDS ORDERED: NORMAL SALINE 250 ML IV ONE (10:43)
[2019-03-06] MEDS: NORMAL SALINE 250 ML IV PRN ×2 (11:17→13:19)
[2019-03-06 12:59] LABS: APPEARANCE,URINE CLEAR; BILIRUBIN,URINE NEGATIVE (NEGATIVE); COLOR,URINE COLORLESS; GLUCOSE, URINE NEGATIVE (NEGATIVE); KETONES,URINE NEGATIVE (NEGATIVE); LEUKOCYTE ESTERASE,URINE NEGATIVE (NEGATIVE); NITRITE,URINE NEGATIVE (NEGATIVE); PROTEIN,URINE NEGATIVE (NEGATIVE); URINE SPECIFIC GRAVITY 1.008; UROBILINOGEN,URINE NEGATIVE mg/dL (<2.0)
--- NOTE | 2019-03-06 13:09 | EKG REPORT ---
SEVERITY:- ABNORMAL ECG - SINUS RHYTHM LEFT BUNDLE BRANCH BLOCK : Confirmed by: Arlene Jeffrey MD 06-Mar-2019 13:08:22
[2019-03-06] MEDS ORDERED: PANTOPRAZOLE SODIUM 40 MG VIAL IV PRN (14:54)
[2019-03-06 14:56] LABS: ABSOLUTE BASOPHILS # (AUTO) 0.2 10^3/uL (0.0-0.2); ABSOLUTE EOSINOPHILS # (AUTO) 0.3 10^3/uL (0.0-0.6); ABSOLUTE LYMPHOCYTES (AUTO) 2.3 10^3/uL (0.5-4.7); ABSOLUTE MONOCYTES (AUTO) 1.4 10^3/uL (0.1-1.4); ABSOLUTE NEUT (AUTO) 11.3 10^3/uL (1.7-8.2); BASOPHILS % (AUTO) 1.1 % (0-2); EOSINOPHILS % (AUTO) 1.9 % (0-6); HEMATOCRIT 24.7 % (37.9-51.0); LYMPHOCYTES % (AUTO) 14.9 % (13-45); MEAN CORPUSCULAR HEMOGLOBIN 23.2 pg (27.0-33.4); MEAN CORPUSCULAR HGB CONC 31.7 g/dL (32.0-36.0); MONOCYTES % (AUTO) 9.1 % (3-13); PLATELET COUNT 187 10^3/uL (150-450); RED BLOOD COUNT 3.38 10^6/uL (4.35-5.55); RED CELL DISTRIBUTION WIDTH 20.6 % (11.5-14.0); TOTAL CELLS COUNTED % (AUTO) 100 %; WHITE BLOOD COUNT 15.5 10^3/uL (4.0-10.5)
[2019-03-06 15:02] LABS: HEMOGLOBIN 7.8 g/dL (13.5-17.0)
[2019-03-06 15:10] LABS: MEAN CORPUSCULAR VOLUME 73 fl (80-97)
[2019-03-06 15:19] VITALS: BP 126/61
== END 2019-03-06 15:25 | disposition short-term general hospital (02) ==
LOC: ER 09:03
DX: K92.2 Gastrointestinal hemorrhage, unspecified (principal); J69.0 Pneumonitis due to inhalation of food and vomit; D64.9 Anemia, unspecified; R19.5 Other fecal abnormalities; R05 Cough; I50.9 Heart failure, unspecified; I11.0 Hypertensive heart disease with heart failure; Z86.73 Personal history of transient ischemic attack (TIA), and cerebral infarction without residual deficits; Z79.02 Long term (current) use of antithrombotics/antiplatelets; Z87.891 Personal history of nicotine dependence; I25.10 Atherosclerotic heart disease of native coronary artery without angina pectoris
CPT/HCPCS: 93005; 96376; 99291; 96361; 96375; 96365; 96367; 86900; 86901; 36415; 87040; 36430; 86850; 85025; 85610; 85730; 80053; 81001; 86920; 82803; 83605; 71045; 93010; P9016; A9270 ×2; J3490; J1940; C9113; J7050; J7040; J2543

== ENCOUNTER 2019-06-15 14:52 | Emergency (ER) | payer MEDICARE, BC ==
--- NOTE | 2019-06-15 15:16 | ER Document Report ---
ED Medical Screen (RME) - General Chief Complaint: Urinary Problem Stated Complaint: URINARY ISSUE Time Seen by Provider: 06/15/19 15:12 Primary Care Provider: ISSAC MALDONADO FNP-BC [Primary Care Provider] - Follow up as needed Mode of Arrival: Wheelchair Information source: Relative Notes: 84-year-old male presented to ED for cough congestion, he also has UTI he was seen by his primary care doctor GI is resistant to all oral antibiotics. Family states that he was sent to the emergency room to get IV antibiotics and to have his chest x-rayed and examined patient is alert and oriented and is able to speak in full sentences. We will get blood urine and chest x-ray. I have greeted and performed a rapid initial assessment of this patient. A comprehensive ED assessment and evaluation of the patient, analysis of test results and completion of medical decision making process will be conducted by an additional ED providers. TRAVEL OUTSIDE OF THE [place] IN LAST 30 DAYS: No - Related Data Allergies/Adverse Reactions: No Known Allergies Allergy (Verified 06/15/19 15:13) Past Medical History - Past Medical History Cardiac Medical History: Reports: Hx Congestive Heart Failure, Hx Coronary Artery Disease, Hx Hypercholesterolemia, Hx Hypertension Denies: Hx Heart Attack, Hx Heart Murmur Pulmonary Medical History: Reports: Hx Pneumonia Denies: Hx Asthma, Hx Tuberculosis Neurological Medical History: Reports: Hx Cerebrovascular Accident - 2000. Denies: Hx Seizures, Hx Parkinson's Disease Renal/ Medical History: Reports: Hx Benign Prostatic Hyperplasia. Denies: Hx Peritoneal Dialysis Malignancy Medical History: Reports Hx Prostate Cancer GI Medical History: Reports: Hx Gastroesophageal Reflux Disease. Denies: Hx Hepatitis, Hx Hiatal Hernia Musculoskeltal Medical History: Reports Hx Arthritis Infectious Medical History: Denies: Hx Hepatitis Past Surgical History: Reports: Hx Appendectomy, Hx Coronary Artery Bypass Graft, Hx Open Heart Surgery - 1999. Denies: Hx Pacemaker. Comment Only: Hx Cardiac Catheterization - CABG - Immunizations Immunizations up to date: Yes Hx Diphtheria, Pertussis, Tetanus Vaccination: Yes Physical Exam - Vital signs Vitals: Temp Pulse Resp BP Pulse Ox 97.4 F 75 20 162/94 H 96 06/15/19 15:05 06/15/19 15:05 06/15/19 15:05 06/15/19 15:05 06/15/19 15:05 Course - Vital Signs Vital signs: Temp Pulse Resp BP Pulse Ox 97.4 F 75 20 162/94 H 96 06/15/19 15:05 06/15/19 15:05 06/15/19 15:05 06/15/19 15:05 06/15/19 15:05 Doctor's Discharge - Discharge Referrals: ISSAC MALDONADO FNP-BC [Primary Care Provider] - Follow up as needed
--- NOTE | 2019-06-15 15:55 | RADIOLOGY REPORT (SQ) ---
EXAM DESCRIPTION: CHEST 2 VIEWS COMPLETED DATE/TIME: 06/15/2019 3:42 pm REASON FOR STUDY: Cough congestion COMPARISON: 03/06/2019, 08/22/2016 EXAM PARAMETERS: NUMBER OF VIEWS: two views TECHNIQUE: Digital Frontal and Lateral radiographic views of the chest acquired. RADIATION DOSE: NA LIMITATIONS: none FINDINGS: LUNGS AND PLEURA: Diffuse interstitial pattern with relative sparing of the right lower lo be. No consolidation. No effusions. MEDIASTINUM AND HILAR STRUCTURES: Stable. HEART AND VASCULAR STRUCTURES: Cardiomegaly. No evidence for failure. BONES: No acute findings. HARDWARE: CABG. OTHER: No other significant finding. IMPRESSION: Chronic interstitial lung disease. No obvious superimposed pneumonia. TECHNICAL DOCUMENTATION: JOB ID: [id number] [employer]- All Rights Reserved Reading location - IP/workstation name: [email or web address]
[2019-06-15 17:05] LABS: ABSOLUTE LYMPHOCYTES (AUTO) 1.5 10^3/uL (0.5-4.7); ABSOLUTE MONOCYTES (AUTO) 0.5 10^3/uL (0.1-1.4); ABSOLUTE NEUT (AUTO) 11.2 10^3/uL (1.7-8.2); BASOPHILS % (AUTO) 0.2 % (0-2); EOSINOPHILS % (AUTO) 0.1 % (0-6); HEMATOCRIT 33.9 % (37.9-51.0); HEMOGLOBIN 10.8 g/dL (13.5-17.0); LYMPHOCYTES % (AUTO) 11.6 % (13-45); MEAN CORPUSCULAR HEMOGLOBIN 25.4 pg (27.0-33.4); MEAN CORPUSCULAR HGB CONC 31.9 g/dL (32.0-36.0); MEAN CORPUSCULAR VOLUME 80 fl (80-97); MONOCYTES % (AUTO) 3.6 % (3-13); RED BLOOD COUNT 4.26 10^6/uL (4.35-5.55); RED CELL DISTRIBUTION WIDTH 22.5 % (11.5-14.0); SEGMENTED NEUTROPHILS % (AUTO) 84.5 % (42-78); TOTAL CELLS COUNTED % (AUTO) 100 %; WHITE BLOOD COUNT 13.3 10^3/uL (4.0-10.5)
[2019-06-15 17:31] LABS: ALBUMIN 3.6 g/dL (3.5-5.0); ALKALINE PHOSPHATASE 100 U/L (38-126); ANION GAP 9 (5-19); ASPARTATE AMINO TRANSFERASE 27 U/L (17-59); BILIRUBIN,DIRECT 0.3 mg/dL (0.0-0.4); BILIRUBIN,TOTAL 0.3 mg/dL (0.2-1.3); BLOOD UREA NITROGEN 33 mg/dL (7-20); CARBON DIOXIDE 35 mmol/L (22-30); CHLORIDE 92 mmol/L (98-107); GLUCOSE 117 mg/dL (75-110); POTASSIUM 4.9 mmol/L (3.6-5.0); TOTAL PROTEIN 7.2 g/dL (6.3-8.2)
[2019-06-15 17:37] LABS: PLATELET COUNT 170 10^3/uL (150-450)
[2019-06-15 17:40] LABS: AMORPHOUS SEDIMENT,URINE TRACE /HPF; APPEARANCE,URINE SLIGHTLY-CLOUDY; BILIRUBIN,URINE NEGATIVE (NEGATIVE); COLOR,URINE YELLOW; GLUCOSE, URINE 50 mg/dL (NEGATIVE); KETONES,URINE NEGATIVE (NEGATIVE); PROTEIN,URINE 30 mg/dL (NEGATIVE); URINE SPECIFIC GRAVITY 1.006; UROBILINOGEN,URINE NEGATIVE mg/dL (<2.0)
--- NOTE | 2019-06-15 21:25 | ER Document Report ---
ED General - General Chief Complaint: Urinary Problem Stated Complaint: URINARY ISSUE Time Seen by Provider: 06/15/19 15:12 Primary Care Provider: ISSAC MALDONADO FNP-BC [Primary Care Provider] - Follow up as needed Mode of Arrival: Wheelchair TRAVEL OUTSIDE OF THE [place] IN LAST 30 DAYS: No - Related Data Allergies/Adverse Reactions: No Known Allergies Allergy (Verified 06/15/19 15:13) Past Medical History - General Information source: Patient, Relative - Social History Smoking Status: Former Smoker Frequency of alcohol use: None Drug Abuse: None Family History: Arthritis, CAD, CVA, DM, Hyperlipidemia, Hypertension, Malignancy Patient has suicidal ideation: No Patient has homicidal ideation: No - Past Medical History Cardiac Medical History: Reports: Hx Congestive Heart Failure, Hx Coronary Artery Disease, Hx Hypercholesterolemia, Hx Hypertension Denies: Hx Heart Attack, Hx Heart Murmur Pulmonary Medical History: Reports: Hx Pneumonia Denies: Hx Asthma, Hx Tuberculosis Neurological Medical History: Reports: Hx Cerebrovascular Accident - 2000. Denies: Hx Seizures, Hx Parkinson's Disease Renal/ Medical History: Reports: Hx Benign Prostatic Hyperplasia. Denies: Hx Peritoneal Dialysis Malignancy Medical History: Reports Hx Prostate Cancer GI Medical History: Reports: Hx Gastroesophageal Reflux Disease. Denies: Hx Hepatitis, Hx Hiatal Hernia Musculoskeletal Medical History: Reports Hx Arthritis Infectious Medical History: Denies: Hx Hepatitis Past Surgical History: Reports: Hx Appendectomy, Hx Coronary Artery Bypass Graft, Hx Open Heart Surgery - 1999. Denies: Hx Pacemaker. Comment Only: Hx Cardiac Catheterization - CABG - Immunizations Immunizations up to date: Yes Hx Diphtheria, Pertussis, Tetanus Vaccination: Yes Hx Pneumococcal Vaccination: 02/10/12 Review of Systems - Review of Systems Constitutional: No symptoms reported EENT: No symptoms reported Cardiovascular: No symptoms reported Respiratory: Cough, Short of breath, Wheezing Gastrointestinal: No symptoms reported Genitourinary: No symptoms reported Male Genitourinary: No symptoms reported Musculoskeletal: No symptoms reported Skin: No symptoms reported Hematologic/Lymphatic: No symptoms reported Neurological/Psychological: No symptoms reported -: Yes All other systems reviewed and negative Physical Exam - Vital signs Vitals: Temp Pulse Resp BP Pulse Ox 97.4 F 75 20 162/94 H 96 06/15/19 15:05 06/15/19 15:05 06/15/19 15:05 06/15/19 15:05 06/15/19 15:05 Course - Vital Signs Vital signs: Temp Pulse Resp BP Pulse Ox 97.3 F 75 20 162/94 H 96 06/15/19 20:40 06/15/19 15:05 06/15/19 15:05 06/15/19 15:05 06/15/19 15:05 - Laboratory Result Diagrams: 06/15/19 16:40 06/15/19 16:40 Laboratory results interpreted by me: 06/15/19 06/15/19 06/15/19 16:40 16:40 16:40 WBC 13.3 H RBC 4.26 L Hgb 10.8 L Hct 33.9 L MCH 25.4 L MCHC 31.9 L RDW 22.5 H Lymph % (Auto) 11.6 L Absolute Neuts (auto) 11.2 H Seg Neutrophils % 84.5 H Sodium 136.2 L Chloride 92 L Carbon Dioxide 35 H BUN 33 H Creatinine 1.80 H Est GFR ( Amer) 44 L Est GFR (MDRD) Non-Af 36 L Glucose 117 H Urine Protein 30 H Urine Glucose (UA) 50 H Urine Blood SMALL H Urine Nitrite (Reflex) POSITIVE H Leukocyte Esterase Rfl MODERATE H Discharge - Discharge Clinical Impression: Wheezing Aspiration into airway Qualifiers: Encounter type: subsequent encounter Qualified Code(s): T17.908D - Unspecified foreign body in respiratory tract, part unspecified causing other injury, subsequent encounter Condition: Stable Disposition: HOME, SELF-CARE Instructions: Urinary Tract Infection ([facility]), Bronchitis With Bronchospasm (Wheezing) ([facility]) Additional Instructions: Take prednisone (higher dose) as prescribed for wheezing and discuss your daily dose of prednisone with your primary care doctor. Also discuss the possibility of having a Bronchoscopy. Use nebulizers every 4-6 hours as needed. Take Macrobid as prescribed for your urine and have your doctor follow up the urine culture result from today which was obtained after your Ernst was changed out. Prescriptions: Prednisone [Deltasone 20 mg Tablet] 3 tab PO DAILY 4 Days tablet Nitrofurantoin Monohyd/M-Cryst [Macrobid 100 mg Capsule] 100 mg PO BID #14 cap Referrals: ISSAC MALDONADO, JODEE-BC [Primary Care Provider] - Follow up as needed
[2019-06-15] MEDS ORDERED: IPRATROPIUM/ALBUTEROL 0.5-2.5 MG/3 ML AMPUL NEB ONE (21:26)
[2019-06-15] MEDS ORDERED: PREDNISONE 20 MG TABLET PO ONE (21:26)
[2019-06-15 23:13] VITALS: BP 160/95
== END 2019-06-15 23:11 | disposition home or self-care (01) ==
LOC: ER 14:52
DX: T17.900A Unspecified foreign body in respiratory tract, part unspecified causing asphyxiation, initial encounter (principal); X58.XXXA Exposure to other specified factors, initial encounter; R05 Cough; R06.02 Shortness of breath; R06.2 Wheezing; I25.10 Atherosclerotic heart disease of native coronary artery without angina pectoris; I10 Essential (primary) hypertension; Z87.01 Personal history of pneumonia (recurrent); Z87.19 Personal history of other diseases of the digestive system; Z85.46 Personal history of malignant neoplasm of prostate
CPT/HCPCS: 94640; 99283; 36415; 87040; 87086; 85025; 87088; 80053; 81001; 71046; A9270 ×2; 87186; J7512; J7620